=== PATIENT | female | born 1965 | race Hispanic/Latino ===

== ENCOUNTER 2023-05-22 14:35 | Emergency (ER) | payer OTHER ==
--- OUTSIDE RECORDS SUMMARY | 2023-05-22 14:44 | XMS REPORT | Continuity of Care Document ---
:1965 Author Organization [facility] t Address [address] [place] [address] [address] [place] [address] Care Team Providers Name Role Phone Marylou Johnson Primary Care Physician [phone] Problems This patient has no known problems. Allergies, Adverse Reactions, Alerts Allergy Allergy Status Severity Reaction(s) Onset Inactive Treating Comm ents Source Name Type Date Date Clinician Penicill Propensi Active ins ty to 3-01 adverse 00:00: reaction 00 to drug Medications Ordered Filled Start Stop Current Ordering Indication Dosage Frequency Signature Comments Components Source Medication Medication Date Date Medication? Clinician (SIG) Name Name APPLY 2021-06 No SPARINGLY 2-14 TO AFFECTED 00:00: AREA(S) 3 00 TIMES A DAY Dose 2021-06 No Unknown 2-14 00:00: 00 TAKE 1 2021-06 No TABLET 2-02 DAILY. 00:00: 00 Dose 2021-0 No Unknown 9-21 00:00: 00 Dose 2021-0 No Unknown 9-21 00:00: 00 Dose 2021-0 No Unknown 9-21 00:00: 00 Dose 2021-0 No Unknown 9-21 00:00: 00 Dose 2021-0 No Unknown 8-01 00:00: 00 Dose 2021-0 No Unknown 8-01 00:00: 00 Dose 2020- No Unknown 1-15 00:00: 00 Dose 2020- No Unknown 1-15 00:00: 00 Dose 2020- No Unknown 1-15 00:00: 00 Dose 2020- No Unknown 1-15 00:00: 00 Dose 2020- No Unknown 1-15 00:00: 00 Dose 2020- No Unknown 1-15 00:00: 00 gemfibrozil 2020-0 No 1mg 600 mg 6-15 tablet 00:00: 00 metformin 1-0 No 1mg 1,000 mg 6-15 tablet 00:00: 00 levothyroxi 1-0 No 1mcg ne 50 mcg 6-15 tablet 00:00: 00 gemfibrozil 1-0 No 1mg 600 mg 6-15 tablet 00:00: 00 metformin 1-0 No 1mg 1,000 mg 6-15 tablet 00:00: 00 levothyroxi 1-0 No 1mcg ne 50 mcg 6-15 tablet 00:00: 00 Dose 2021-0 No Unknown 3-09 00:00: 00 Dose 1-0 No Unknown 3-09 00:00: 00 loratadine 1-0 No 1mg 10 mg 3-05 tablet 00:00: 00 gemfibrozil 1-0 No 1mg 600 mg 3-05 tablet 00:00: 00 Dose 1-0 No Unknown 3-05 00:00: 00 Dose 1-0 No Unknown 3-05 00:00: 00 metformin 1-0 No 1mg 1,000 mg 3-05 tablet 00:00: 00 Dose 1-0 No Unknown 3-05 00:00: 00 loratadine 1-0 No 1mg 10 mg 3-05 tablet 00:00: 00 gemfibrozil 1-0 No 1mg 600 mg 3-05 tablet 00:00: 00 Dose 1-0 No Unknown 3-05 00:00: 00 Dose 1-0 No Unknown 3-05 00:00: 00 metformin 1-0 No 1mg 1,000 mg 3-05 tablet 00:00: 00 Dose 1-0 No Unknown 3-05 00:00: 00 gemfibrozil 2019-1 No 1mg 600 mg 2-18 tablet 00:00: 00 Dose 2019-1 No Unknown 2-18 00:00: 00 Dose 2019-1 No Unknown 2-18 00:00: 00 Dose 2019-1 No Unknown 2-18 00:00: 00 gemfibrozil 2019-1 No 1mg 600 mg 2-18 tablet 00:00: 00 Dose 2019-1 No Unknown 2-18 00:00: 00 Dose 2019-1 No Unknown 2-18 00:00: 00 Dose 2019-1 No Unknown 2-18 00:00: 00 Dose 2020-0 No Unknown 9-17 00:00: 00 Dose 2020-0 No Unknown 9- 00:00: 00 Dose 2020-0 No Unknown 9 00:00: 00 Dose 2020-0 No Unknown 9-17 00:00: 00 Dose 2020-0 No Unknown 9 00:00: 00 Dose 2020-0 No Unknown 03-05 00:00: 00 metformin 2020-0 No 1mg 1,000 mg 8-10 tablet 00:00: 00 metformin 2020-0 No 1mg 1,000 mg 8-10 tablet 00:00: 00 gemfibrozil 2020-0 No 1mg 600 mg 6-22 tablet 00:00: 00 levothyroxi 2020-0 No 1mcg ne 50 mcg 6-22 tablet 00:00: 00 gemfibrozil 2020-0 No 1mg 600 mg 6-22 tablet 00:00: 00 levothyroxi 2020-0 No 1mcg ne 50 mcg 6-22 tablet 00:00: 00 gemfibrozil 2020-0 No 1mg 600 mg 3-24 tablet 00:00: 00 metformin 2020-0 No 1mg 1,000 mg 3-24 tablet 00:00: 00 levothyroxi 2020-0 No 1mcg ne 50 mcg 3-24 tablet 00:00: 00 gemfibrozil 2020-0 No 1mg 600 mg 3-24 tablet 00:00: 00 metformin 2020-0 No 1mg 1,000 mg 3-24 tablet 00:00: 00 levothyroxi 2020-0 No 1mcg ne 50 mcg 3-24 tablet 00:00: 00 gemfibrozil 2019-1 No 1mg 600 mg 2-20 tablet 00:00: 00 metformin 2019-1 No 1mg 1,000 mg 2-20 tablet 00:00: 00 levothyroxi 2019-1 No 1mcg ne 50 mcg 2-20 tablet 00:00: 00 gemfibrozil 2019-1 No 1mg 600 mg 2-20 tablet 00:00: 00 metformin 2019-1 No 1mg 1,000 mg 2-20 tablet 00:00: 00 levothyroxi 2019-1 No 1mcg ne 50 mcg 2-20 tablet 00:00: 00 metformin 2019-0 No 1mg 1,000 mg 9-29 tablet 00:00: 00 levothyroxi 2019-0 No 1mcg ne 50 mcg 9-29 tablet 00:00: 00 metformin 2019-0 No 1mg 1,000 mg 9-29 tablet 00:00: 00 levothyroxi 2019-0 No 1mcg ne 50 mcg 9-29 tablet 00:00: 00 gemfibrozil 2019-0 No 1mg 600 mg 9-24 tablet 00:00: 00 gemfibrozil 2019-0 No 1mg 600 mg 9-24 tablet 00:00: 00 gemfibrozil 2019-0 No 1mg 600 mg 7-19 tablet 00:00: 00 metformin 2019-0 No 1mg 1,000 mg 7-19 tablet 00:00: 00 levothyroxi 2019-0 No 1mcg ne 50 mcg 7-19 tablet 00:00: 00 gemfibrozil 2019-0 No 1mg 600 mg 7-19 tablet 00:00: 00 metformin 2019-0 No 1mg 1,000 mg 7-19 tablet 00:00: 00 levothyroxi 2019-0 No 1mcg ne 50 mcg 7-19 tablet 00:00: 00 gemfibrozil 2019-0 No 1mg 600 mg 4-12 tablet 00:00: 00 metformin 2019-0 No 1mg 1,000 mg 4-12 tablet 00:00: 00 levothyroxi 2019-0 No 1mcg ne 50 mcg 4-12 tablet 00:00: 00 gemfibrozil 2019-0 No 1mg 600 mg 4-12 tablet 00:00: 00 metformin 2019-0 No 1mg 1,000 mg 4-12 tablet 00:00: 00 levothyroxi 2019-0 No 1mcg ne 50 mcg 4-12 tablet 00:00: 00 levothyroxi 2019-0 No 1mcg ne 50 mcg 4-04 tablet 00:00: 00 levothyroxi 2019-0 No 1mcg ne 50 mcg 4-04 tablet 00:00: 00 Tamiflu 75 2019-0 No 1mg mg capsule 1-04 00:00: 00 Tamiflu 75 2019-0 No 1mg mg capsule 1-04 00:00: 00 gemfibrozil 2018-1 No 1mg 600 mg 2-13 tablet 00:00: 00 metformin 2018-1 No 1mg 1,000 mg 2-13 tablet 00:00: 00 levothyroxi 2018-1 No 1mcg ne 50 mcg 2-13 tablet 00:00: 00 gemfibrozil 2018-1 No 1mg 600 mg 2-13 tablet 00:00: 00 metformin 2018-1 No 1mg 1,000 mg 2-13 tablet 00:00: 00 levothyroxi 2018-1 No 1mcg ne 50 mcg 2-13 tablet 00:00: 00 gemfibrozil 2018-0 No 1mg 600 mg 9-27 tablet 00:00: 00 metformin 2018-0 No 1mg 1,000 mg 9-27 tablet 00:00: 00 levothyroxi 2018-0 No 1mcg ne 50 mcg 9-27 tablet 00:00: 00 gemfibrozil 2018-0 No 1mg 600 mg 9-27 tablet 00:00: 00 metformin 2018-0 No 1mg 1,000 mg 9-27 tablet 00:00: 00 levothyroxi 2018-0 No 1mcg ne 50 mcg 9-27 tablet 00:00: 00 gemfibrozil 2018-0 No 1mg 600 mg 8-27 tablet 00:00: 00 metformin 2018-0 No 1mg 1,000 mg 8-27 tablet 00:00: 00 levothyroxi 2018-0 No 1mcg ne 50 mcg 8-27 tablet 00:00: 00 gemfibrozil 2018-0 No 1mg 600 mg 8-27 tablet 00:00: 00 metformin 2018-0 No 1mg 1,000 mg 8-27 tablet 00:00: 00 levothyroxi 2018-0 No 1mcg ne 50 mcg 8-27 tablet 00:00: 00 levothyroxi 2018-0 No 1mcg ne 50 mcg 7-02 tablet 00:00: 00 levothyroxi 2018-0 No 1mcg ne 50 mcg 7-02 tablet 00:00: 00 gemfibrozil 2018-0 No 1mg 600 mg 5-03 tablet 00:00: 00 metformin 2018-0 No 1mg 1,000 mg 5-03 tablet 00:00: 00 levothyroxi 2018-0 No 1mcg ne 50 mcg 5-03 tablet 00:00: 00 levothyroxi 2018-0 No 1mcg ne 50 mcg 5-03 tablet 00:00: 00 gemfibrozil 2018-0 No 1mg 600 mg 5-03 tablet 00:00: 00 metformin 2018-0 No 1mg 1,000 mg 5-03 tablet 00:00: 00 levothyroxi 2018-0 No 1mcg ne 50 mcg 5-03 tablet 00:00: 00 levothyroxi 2018-0 No 1mcg ne 50 mcg 5-03 tablet 00:00: 00 levothyroxi 2018-0 No 1mcg ne 50 mcg 2-20 tablet 00:00: 00 levothyroxi 2018-0 No 1mcg ne 50 mcg 2-20 tablet 00:00: 00 metformin 2018-0 No 1mg 1,000 mg 2-01 tablet 00:00: 00 metformin 2018-0 No 1mg 1,000 mg 2-01 tablet 00:00: 00 metformin 2017-0 No 1mg 1,000 mg 8-14 tablet 00:00: 00 levothyroxi 2017-0 No 1mcg ne 50 mcg 8-14 tablet 00:00: 00 gemfibrozil 2017-0 No 1mg 600 mg 8-14 tablet 00:00: 00 metformin 2017-0 No 1mg 1,000 mg 8-14 tablet 00:00: 00 levothyroxi 2017-0 No 1mcg ne 50 mcg 8-14 tablet 00:00: 00 gemfibrozil 2017-0 No 1mg 600 mg 8-14 tablet 00:00: 00 levothyroxi 2017-0 No 1mcg ne 50 mcg 7-25 tablet 00:00: 00 levothyroxi 2017-0 No 1mcg ne 50 mcg 7-25 tablet 00:00: 00 gemfibrozil 2017-0 No 1mg 600 mg 6-20 tablet 00:00: 00 gemfibrozil 2017-0 No 1mg 600 mg 6-20 tablet 00:00: 00 metformin 2017-0 No 1mg 1,000 mg 5-27 tablet 00:00: 00 metformin 2017-0 No 1mg 1,000 mg 5-27 tablet 00:00: 00 gemfibrozil 2017-0 No 1mg 600 mg 5-02 tablet 00:00: 00 gemfibrozil 2017-0 No 1mg 600 mg 5-02 tablet 00:00: 00 levothyroxi 2017-0 No 1mcg ne 50 mcg 3-29 tablet 00:00: 00 levothyroxi 2017-0 No 1mcg ne 50 mcg 3-29 tablet 00:00: 00 Vital Signs Vital Name Observation Time Observation Value Comments Source BP Systolic 2022-06-02 16:07:00 117 mm[Hg] BP Diastolic 2022-06-02 16:07:00 72 mm[Hg] Weight Measured 2022-06-02 16:07:00 145.60 pounds Height Measured 2022-06-02 16:07:00 63.50 inches Body Temperature 2022-06-02 16:07:00 98.20 degrees Heart Rate 2022-06-02 16:07:00 92.00 /min Respiratory Rate 2022-06-02 16:07:00 18.00 /min BP Systolic 2022-03-18 16:38:00 110 mm[Hg] BP Diastolic 2022-03-18 16:38:00 74 mm[Hg] Weight Measured 2022-03-18 16:38:00 143.20 pounds Height Measured 2022-03-18 16:38:00 63.50 inches Body Temperature 2022-03-18 16:38:00 98.40 degrees Heart Rate 2022-03-18 16:38:00 80.00 /min Respiratory Rate 2022-03-18 16:38:00 BP Systolic 2021-11-26 10:43:00 110 mm[Hg] BP Diastolic 2021-11-26 10:43:00 71 mm[Hg] Weight Measured 2021-11-26 10:43:00 146.80 pounds Height Measured 2021-11-26 10:43:00 63.50 inches Body Temperature 2021-11-26 10:43:00 98.20 degrees Heart Rate 2021-11-26 10:43:00 74.00 /min Respiratory Rate 2021-11-26 10:43:00 BP Systolic 2021-08-10 08:25:00 111 mm[Hg] BP Diastolic 2021-08-10 08:25:00 74 mm[Hg] Weight Measured 2021-08-10 08:25:00 147.60 pounds Height Measured 2021-08-10 08:25:00 63.50 inches Body Temperature 2021-08-10 08:25:00 97.40 degrees Heart Rate 2021-08-10 08:25:00 84.00 /min Respiratory Rate 2021-08-10 08:25:00 BP Systolic 2021-05-07 08:48:00 104 mm[Hg] BP Diastolic 2021-05-07 08:48:00 66 mm[Hg] Weight Measured 2021-05-07 08:48:00 150.00 pounds Height Measured 2021-05-07 08:48:00 63.50 inches Body Temperature 2021-05-07 08:48:00 96.70 degrees Heart Rate 2021-05-07 08:48:00 67.00 /min Respiratory Rate 2021-05-07 08:48:00 BP Systolic 2021-05-03 16:22:00 107 mm[Hg] BP Diastolic 2021-05-03 16:22:00 71 mm[Hg] Weight Measured 2021-05-03 16:22:00 150.00 pounds Height Measured 2021-05-03 16:22:00 63.50 inches Body Temperature 2021-05-03 16:22:00 97.20 degrees Heart Rate 2021-05-03 16:22:00 86.00 /min Respiratory Rate 2021-05-03 16:22:00 BP Systolic 2020-08-21 09:54:00 120 mm[Hg] BP Diastolic 2020-08-21 09:54:00 79 mm[Hg] Weight Measured 2020-08-21 09:54:00 152.20 pounds Height Measured 2020-08-21 09:54:00 63.50 inches Body Temperature 2020-08-21 09:54:00 98.30 degrees Heart Rate 2020-08-21 09:54:00 96.00 /min Respiratory Rate 2020-08-21 09:54:00 17.00 /min BP Systolic 2020-06-05 10:45:00 114 mm[Hg] BP Diastolic 2020-06-05 10:45:00 85 mm[Hg] Weight Measured 2020-06-05 10:45:00 146.00 pounds Height Measured 2020-06-05 10:45:00 63.50 inches Body Temperature 2020-06-05 10:45:00 97.80 degrees Heart Rate 2020-06-05 10:45:00 105.00 /min Respiratory Rate 2020-06-05 10:45:00 BP Systolic 2020-03-05 08:06:00 113 mm[Hg] BP Diastolic 2020-03-05 08:06:00 76 mm[Hg] Weight Measured 2020-03-05 08:06:00 152.80 pounds Height Measured 2020-03-05 08:06:00 63.50 inches Body Temperature 2020-03-05 08:06:00 98.50 degrees Heart Rate 2020-03-05 08:06:00 85.00 /min Respiratory Rate 2020-03-05 08:06:00 17.00 /min BP Systolic 2019-12-09 10:19:00 122 mm[Hg] BP Diastolic 2019-12-09 10:19:00 72 mm[Hg] Weight Measured 2019-12-09 10:19:00 153.40 pounds Height Measured 2019-12-09 10:19:00 63.50 inches Body Temperature 2019-12-09 10:19:00 98.00 degrees Heart Rate 2019-12-09 10:19:00 94.00 /min Respiratory Rate 2019-12-09 10:19:00 17.00 /min BP Systolic 2019-09-05 10:45:00 119 mm[Hg] BP Diastolic 2019-09-05 10:45:00 76 mm[Hg] Weight Measured 2019-09-05 10:45:00 155.40 pounds Height Measured 2019-09-05 10:45:00 63.50 inches Body Temperature 2019-09-05 10:45:00 98.30 degrees Heart Rate 2019-09-05 10:45:00 90.00 /min Respiratory Rate 2019-09-05 10:45:00 Procedures This patient has no known procedures. Plan of Care Planned Activity Planned Date Details Comments Source Goal Plan of Care Note [code = 22224-6] Goal Plan of Care Note [code = 73859-4] Goal Plan of Care Note [code = 04035-2] Goal Plan of Care Note [code = 80186-8] Goal Plan of Care Note [code = 93170-3] Goal Plan of Care Note [code = 73097-6] Goal Plan of Care Note [code = 37776-5] Goal Plan of Care Note [code = 37373-4] Goal Plan of Care Note [code = 04907-9] Goal Plan of Care Note [code = 29938-0] Goal Plan of Care Note [code = 37219-5] Goal Plan of Care Note [code = 06367-9] Goal Plan of Care Note [code = 19889-8] Goal Plan of Care Note [code = 40581-8] Goal Plan of Care Note [code = 96342-3] Goal Plan of Care Note [code = 80458-0] Goal Plan of Care Note [code = 27866-1] Goal Plan of Care Note [code = 85235-9] Goal Plan of Care Note [code = 28277-5] Goal Plan of Care Note [code = 35320-0] Goal Plan of Care Note [code = 82882-9] Goal Plan of Care Note [code = 48013-6] Goal Plan of Care Note [code = 53460-0] Goal Plan of Care Note [code = 50345-7] Goal Plan of Care Note [code = 00528-2] Goal Plan of Care Note [code = 78579-3] Goal Plan of Care Note [code = 55927-2] Goal Plan of Care Note [code = 20413-0] Goal Plan of Care Note [code = 05099-7] Goal Plan of Care Note [code = 60877-8] Goal Plan of Care Note [code = 60017-3] Goal Plan of Care Note [code = 68421-4] Goal Plan of Care Note [code = 52062-4] Goal Plan of Care Note [code = 29117-6] Goal Plan of Care Note [code = 43345-6] Goal Plan of Care Note [code = 53412-8] Goal Plan of Care Note [code = 12203-8] Goal Plan of Care Note [code = 23294-1] Encounters Start End Encounter Admission Attending Care Care Encounter Source Date/Time Date/Time Type Type Clinicians Facility Department ID 2023-04-07 2023-04-07 Outpatient SFA SFA [id number] [place] 11:44:32 11:44:32 1020 [facility] 2022-12-21 2022-12-21 Outpatient SFA SFA [id number] [place] 08:12:21 08:12:21 0705 [facility] 2022-12-16 2022-12-16 Outpatient SFA SFA [id number] Jairo 16:43:47 16:43:47 0630 F [facility] 2022-09-15 2022-09-15 Outpatient SFA SFA [id number] [place] 09:31:37 09:31:37 0330 [facility] 2022-06-08 2022-06-08 Outpatient SFA SFA [id number] [place] 08:08:35 08:08:35 1221 [facility] [place] 2022-06-02 2022-06-02 Outpatient SFA SFA [id number] J[place] 15:58:23 15:58:23 1215 [facility] [place] 2022-06-02 2022-06-02 Outpatient [id number] 00:00:00 00:00:00 Visit [id number] 2022-03-25 2022-03-25 Outpatient SFA SFA [id number] 022 [place] 10:04:45 10:04:45 1007 [facility] [place] 2022-03-18 2022-03-18 Outpatient SFA SFA [id number] 022 [place] 16:38:12 16:38:12 0930 [facility] [place] 2022-03-18 2022-03-18 Outpatient [id number] 00:00:00 00:00:00 Visit [id number] Results Test Description Test Time Test Comments Results Result Comments Source TSH, THIRD GENERATION 2022-06-09 05:23:42 Test Item Value Reference Range Interpretation Comme nts TSH, THIRD GENERATION (test 1.720 UIU/ML 0.400-4.100 UNLESS OTHERWISE INDICATED, code = 2821) ALL TESTING PER FORMED ATCLINICAL PATH OLOGY LABORATORIES, [facility]. [address] [place] [address] 9636 WELL SURVEYING ENGINEER: Benton OSEI [id number] [facility] [place]. [id number] HEMOGLOBIN [id number] 03:50:34 Test Item Value Reference Range Interpretation Comments HEMOGLOBIN A1c (test 7.8 % 4.2-5.6 H [employer] AN DIABETES code = 16251) ASSOCIATION IDELINES FOR HGB A1C: PREDIABETES/INC REASED RISK . . . . . . . 5.7 -6.4% DIAGNOSIS OF DI ABETES . . . . . . . . . >=6 .5% WITH CONFIRMATION OR APPROPRIATE SYMPTOMS NOTE: ASSAY MAY BE AFFECTED BY HEMOGLOBINOPATH IES (SICKLE CELL ANEMIA, S- C DISEASE, OTHERS) OR AL FICIALLY LOWERED BY DECR EASED RED CELL SURVIVAL ( HEMOLYTIC ANEMIAS, BLOOD LOSS, ETC.). CONSIDER ALTERN ATE TESTING OR LABORATORY C ONSULTATION. LIPID [id number] 03:03:48 Test Item Value Reference Range Interpretation Comments CHOLESTEROL (test 221 MG/DL <200 H code = 2210) TRIGLYCERIDES (test 134 MG/DL <150 code = 2232) HDL CHOLESTEROL (test 56 MG/DL >39 code = 2220) CALC LDL CHOL (test 139 MG/DL <100 H NOTE: C ALCULATED LDL code = 2237) IS BASED ON STONE-ROSARIO METHOD WHICHINCLUDES ADJUSTABLE TRIGLYCERIDE:VL DL CHOLESTEROL RAT IO.THIS FACTOR VARIES B Y MEASURED TRIGLY CERIDE AND NON-HDLCHOL ESTEROL CONCENTRATIONS WITH INCREASED CALCU LATED LDL SEENIN HIGH ER TRIGLYCERIDE OR LOWER NON-HDL SPECIME NS. FOR MOREINFORMATION , SEE CLIENT ANNOUNCE MENT AT [email or web address] [email or web address] RATIO LDL/HDL 2.48 RATIO <3.22 (test code = 2238) COMPREHENSIVE METABOLIC [id number] 03:03:48 Test Item Value Reference Range Interpretation Comments GLUCOSE (test code = 149 MG/DL 70-99 H 2216) BUN (test code = 13 MG/DL 6-20 2207) CREATININE (test 0.56 MG/DL 0.60-1.30 L code = 2214) eGFR (2020 CKD-EPI) 106 >60 (test code = 57902) ML/MIN/1.73 CALC BUN/CREAT (test 23 RATIO 6-28 code = 2235) SODIUM (test code = 140 MEQ/L [phone]) POTASSIUM (test code 4.6 MEQ/L 3.5-5.4 = 2227) CHLORIDE (test code 103 MEQ/L 95-107 = 2214) CARBON DIOXIDE (test 26 MEQ/L 19-31 code = 220) CALCIUM (test code = 9.8 MG/DL 8.5-10.5 2208) PROTEIN, TOTAL (test 7.3 G/DL 6.1-8.3 code = 2229) ALBUMIN (test code = 4.7 G/DL 3.5-5.2 2200) CALC GLOBULIN (test 2.6 G/DL 1.9-3.7 code = 2240) CALC A/G RATIO (test 1.8 RATIO 1.0-2.6 code = 2234) BILIRUBIN, TOTAL <0.2 MG/DL See_Comment [Automated message] (test code = 2207) The syste m which generated this result transmit amaury reference range : <=1.2. The refe rence range was not u sed to interpret th is result as normal/abnormal . ALKALINE PHOSPHATASE 110 U/L 40-136 (test code = 2204) AST (test code = 14 U/L 9-40 2217) ALT (test code = 10 U/L 5-40 2218) TSH + FREE T4 [id number] 06:51:21 Test Item Value Reference Range Interpretation Comments TSH, THIRD 1.480 UIU/ML 0.400-4.100 GENERATION (test code = 2821) FREE T4 (THYROXINE) 1.30 NG/DL 0.80-1.90 UNLESS OTHERWISE (test code = 2823) INDICATED , ALL TESTING PERFORMED [facility] PATHOLOGY LABORATORIES, [facility] [address] [place] [id number] [place] [address] DIRECTOR: JED PRADHAN M.D. IA NUMBER [id number] CAP ACCREDITATION N O. [id number] LIPID [id number] 06:19:30 Test Item Value Reference Range Interpretation Comments CHOLESTEROL (test 219 MG/DL <200 H code = 2210) TRIGLYCERIDES (test 82 MG/DL <150 code = 2232) HDL CHOLESTEROL (test 68 MG/DL >39 code = 2220) CALC LDL CHOL (test 133 MG/DL <100 H NOTE: C ALCULATED LDL code = 2237) IS BASED ON STONE-ROSARIO METHOD WHICHINCLUDES ADJUSTABLE TRIGLYCERIDE:VL DL CHOLESTEROL RAT IO.THIS FACTOR VARIES B Y MEASURED TRIGLY CERIDE AND NON-HDLCHOL ESTEROL CONCENTRATIONS WITH INCREASED CALCU LATED LDL SEENIN HIGH ER TRIGLYCERIDE OR LOWER NON-HDL SPECIME NS. FOR MOREINFORMATION , SEE CLIENT ANNOUNCE MENT AT [email or web address] RISK RATIO LDL/HDL 1.96 RATIO <3.22 (test code = 2238) COMPREHENSIVE METABOLIC [id number] 06:19:30 Test Item Value Reference Range Interpretation Comments GLUCOSE (test code = 115 MG/DL 70-99 H 2216) BUN (test code = 12 MG/DL 6-20 2207) CREATININE (test 0.58 MG/DL 0.60-1.30 L code = 2214) eGFR (2020 CKD-EPI) 105 >60 (test code = 86517) ML/MIN/1.73 CALC BUN/CREAT (test 21 RATIO 6-28 code = 2235) SODIUM (test code = 141 MEQ/L 450-158 6966) POTASSIUM (test code 4.5 MEQ/L 3.5-5.4 = 2227) CHLORIDE (test code 105 MEQ/L 95-107 = 2214) CARBON DIOXIDE (test 26 MEQ/L 19-31 code = 220) CALCIUM (test code = 9.8 MG/DL 8.5-10.5 2208) PROTEIN, TOTAL (test 7.0 G/DL 6.1-8.3 code = 2228) ALBUMIN (test code = 4.5 G/DL 3.5-5.2 2200) CALC GLOBULIN (test 2.5 G/DL 1.9-3.7 code = 224) CALC A/G RATIO (test 1.8 RATIO 1.0-2.6 code = 223) BILIRUBIN, TOTAL 0.2 MG/DL See_Comment [Automated message] (test code = 220) The syste m which generated this result transmit amaury reference range : <=1.2. The refe rence range was not u sed to interpret th is result as normal/abnormal . ALKALINE PHOSPHATASE 92 U/L 40-136 (test code = 2204) AST (test code = 15 U/L 9-40 2217) ALT (test code = 9 U/L 5-40 2218) HEMOGLOBIN [id number] 03:06:00 Test Item Value Reference Range Interpretation Comments HEMOGLOBIN A1c (test 7.3 % 4.2-5.6 H [employer] DIABETES code = 99821) ASSOCIATION IDELINES FOR HGB A1C: PREDIABETES/INC REASED RISK . . . . . . . 5.7 -6.4% DIAGNOSIS OF DI ABETES . . . . . . . . . >=6 .5% WITH CONFIRMATION OR APPROPRIATE SYMPTOMS NOTE: ASSAY MAY BE AFFECTED BY HEMOGLOBINOPATH IES (SICKLE CELL ANEMIA, S- C DISEASE, OTHERS) OR AL FICIALLY LOWERED BY DECR EASED RED CELL SURVIVAL ( HEMOLYTIC ANEMIAS, BLOOD LOSS, ETC.). CONSIDER ALTERN ATE TESTING OR LABORATORY C ONSULTATION. HEMOGLOBIN A1c [ADDED]2022-03-26 00:00:00 Test Item Value Reference Range Interpretation Comments HEMOGLOBIN A1c (test code = 55492) 7.3 % HEMOGLOBIN A1c [ADDED]2022-03-26 00:00:00 Test Item Value Reference Range Interpretation Comments HEMOGLOBIN A1c (test code = 15879) 7.3 % HEMOGLOBIN A1c [ADDED]2022-03-26 00:00:00 Test Item Value Reference Range Interpretation Comments HEMOGLOBIN A1c (test code = 48415) 7.3 % LIPID PANEL [ADDED]2022-03-26 00:00:00 Test Item Value Reference Range Interpretation Comments CHOLESTEROL (test code = 2210) 219 MG/DL TRIGLYCERIDES (test code = 2232) 82 MG/DL HDL CHOLESTEROL (test code = 2220) 68 MG/DL CALC LDL CHOL (test code = 2237) 133 MG/DL RISK RATIO LDL/HDL (test code = 1.96 RATIO 2238) LIPID PANEL [ADDED]2022-03-26 00:00:00 Test Item Value Reference Range Interpretation Comments CHOLESTEROL (test code = 2210) 219 MG/DL TRIGLYCERIDES (test code = 2232) 82 MG/DL HDL CHOLESTEROL (test code = 2220) 68 MG/DL CALC LDL CHOL (test code = 2237) 133 MG/DL RISK RATIO LDL/HDL (test code = 1.96 RATIO 2238) COMPREHENSIVE METABOLIC PANEL [ADDED]2022-03-26 00:00:00 Test Item Value Reference Range Interpretation Comments GLUCOSE (test code = 2217) 115 MG/DL BUN (test code = 2208) 12 MG/DL CREATININE (test code = 2214) 0.58 MG/DL eGFR (2020 CKD-EPI) (test 105 ML/MIN/1.73 code = 87997) CALC BUN/CREAT (test code = 21 RATIO 2235) SODIUM (test code = 2231) 141 MEQ/L POTASSIUM (test code = 2228) 4.5 MEQ/L CHLORIDE (test code = 2215) 105 MEQ/L CARBON DIOXIDE (test code = 26 MEQ/L 220) CALCIUM (test code = 2209) 9.8 MG/DL PROTEIN, TOTAL (test code = 7.0 G/DL 222) ALBUMIN (test code = 2201) 4.5 G/DL CALC GLOBULIN (test code = 2.5 G/DL 2240) CALC A/G RATIO (test code = 1.8 RATIO 2234) BILIRUBIN, TOTAL (test code = 0.2 MG/DL 2206) ALKALINE PHOSPHATASE (test 92 U/L code = 2204) AST (test code = 2218) 15 U/L ALT (test code = 2219) 9 U/L COMPREHENSIVE METABOLIC PANEL [ADDED]2022-03-26 00:00:00 Test Item Value Reference Range Interpretation Comments GLUCOSE (test code = 2217) 115 MG/DL BUN (test code = 2208) 12 MG/DL CREATININE (test code = 2214) 0.58 MG/DL eGFR (2020 CKD-EPI) (test 105 ML/MIN/1.73 code = 36124) CALC BUN/CREAT (test code = 21 RATIO 2235) SODIUM (test code = 2231) 141 MEQ/L POTASSIUM (test code = 2228) 4.5 MEQ/L CHLORIDE (test code = 2215) 105 MEQ/L CARBON DIOXIDE (test code = 26 MEQ/L 2205) CALCIUM (test code = 2209) 9.8 MG/DL PROTEIN, TOTAL (test code = 7.0 G/DL 2228) ALBUMIN (test code = 2201) 4.5 G/DL CALC GLOBULIN (test code = 2.5 G/DL 2240) CALC A/G RATIO (test code = 1.8 RATIO 2234) BILIRUBIN, TOTAL (test code = 0.2 MG/DL 2206) ALKALINE PHOSPHATASE (test 92 U/L code = 2204) AST (test code = 2218) 15 U/L ALT (test code = 2219) 9 U/L TSH + FREE T4 PROFILE [ADDED]2022-03-26 00:00:00 Test Item Value Reference Range Interpretation Comments TSH, THIRD GENERATION (test code 1.480 UIU/ML = 2821) FREE T4 (THYROXINE) (test code = 1.30 NG/DL 2823) TSH + FREE T4 PROFILE [ADDED]2022-03-26 00:00:00 Test Item Value Reference Range Interpretation Comments TSH, THIRD GENERATION (test code 1.480 UIU/ML = 2821) FREE T4 (THYROXINE) (test code = 1.30 NG/DL 2823) TSH + FREE T4 PROFILE [ADDED]2022-03-26 00:00:00 Test Item Value Reference Range Interpretation Comments TSH, THIRD GENERATION (test code 1.480 UIU/ML = 2821) FREE T4 (THYROXINE) (test code = 1.30 NG/DL 2823) TSH + FREE T4 [id number] 05:42:42 Test Item Value Reference Range Interpretation Comments TSH, THIRD 1.030 UIU/ML 0.400-4.100 GENERATION (test code = 2821) FREE T4 (THYROXINE) 1.37 NG/DL 0.80-1.90 UNLESS OTHERWISE (test code = 2823) INDICATED , ALL TESTING PERFORMED [facility], [facility] [address] [place] [id number] [place] [address] DIRECTOR: JED PRADHAN M.D. CLIA NUMBER [id number] CAP ACCREDITATION N O. [id number] LIPID [id number] 05:22:58 Test Item Value Reference Range Interpretation Comments CHOLESTEROL (test 218 MG/DL <200 H code = 2210) TRIGLYCERIDES (test 112 MG/DL <150 code = 2232) HDL CHOLESTEROL (test 64 MG/DL >39 code = 2220) CALC LDL CHOL (test 132 MG/DL <100 H NOTE: C ALCULATED LDL code = 2237) IS BASED ON STONE-ROSARIO METHOD WHICHINCLUDES ADJUSTABLE TRIGLYCERIDE:VL DL CHOLESTEROL RAT IO.THIS FACTOR VARIES B Y MEASURED TRIGLY CERIDE AND NON-HDLCHOL ESTEROL CONCENTRATIONS WITH INCREASED CALCU LATED LDL SEENIN HIGH ER TRIGLYCERIDE OR LOWER NON-HDL SPECIME NS. FOR MOREINFORMATION , SEE CLIENT ANNOUNCE MENT AT [email or web address] [email or web address] LDL/HDL 2.06 RATIO <3.22 (test code = 2238) COMPREHENSIVE METABOLIC [id number] 05:22:58 Test Item Value Reference Range Interpretation Comments GLUCOSE (test code = 107 MG/DL 70-99 H 2216) BUN (test code = 13 MG/DL 6-20 2207) CREATININE (test 0.57 MG/DL 0.60-1.30 L code = 2214) eGFR (2020 CKD-EPI) 105 >60 (test code = 41570) ML/MIN/1.73 CALC BUN/CREAT (test 23 RATIO 6-28 code = 2234) SODIUM (test code = 140 MEQ/L 707-038 1683) POTASSIUM (test code 4.1 MEQ/L 3.5-5.4 = 2227) CHLORIDE (test code 104 MEQ/L 95-107 = 2214) CARBON DIOXIDE (test 26 MEQ/L 19-31 code = 2205) CALCIUM (test code = 9.8 MG/DL 8.5-10.5 2208) PROTEIN, TOTAL (test 7.0 G/DL 6.1-8.3 code = 2228) ALBUMIN (test code = 4.6 G/DL 3.5-5.2 2200) CALC GLOBULIN (test 2.4 G/DL 1.9-3.7 code = 2239) CALC A/G RATIO (test 1.9 RATIO 1.0-2.6 code = 2233) BILIRUBIN, TOTAL 0.2 MG/DL See_Comment [Automated message] (test code = 2206) The syste [employer] which generated this result transmit amaury reference range : <=1.2. The refe rence range was not u sed to interpret th is result as normal/abnormal . ALKALINE PHOSPHATASE 96 U/L 40-136 (test code = 2203) AST (test code = 15 U/L 9-40 2217) ALT (test code = 13 U/L 5-40 2218) HEMOGLOBIN [id number] 05:20:46 Test Item Value Reference Range Interpretation Comments HEMOGLOBIN A1c (test 7.5 % 4.2-5.6 H AMERIC AN DIABETES code = 82917) ASSOCIATION IDELINES FOR HGB A1C: PREDIABETES/INC REASED RISK . . . . . . . 5.7 -6.4% DIAGNOSIS OF DI ABETES . . . . . . . . . >=6 .5% WITH CONFIRMATION OR APPROPRIATE SYMPTOMS NOTE: ASSAY MAY BE AFFECTED BY HEMOGLOBINOPATH IES (SICKLE CELL ANEMIA, S- C DISEASE, OTHERS) OR AL FICIALLY LOWERED BY DECR EASED RED CELL SURVIVAL ( HEMOLYTIC ANEMIAS, BLOOD LOSS, ETC.). CONSIDER ALTERN ATE TESTING OR LABORATORY C ONSULTATION. LIPID PANEL [ADDED]2021-11-27 00:00:00 Test Item Value Reference Range Interpretation Comments CHOLESTEROL (test code = 2210) 218 MG/DL TRIGLYCERIDES (test code = 2232) 112 MG/DL HDL CHOLESTEROL (test code = 2220) 64 MG/DL CALC LDL CHOL (test code = 2237) 132 MG/DL RISK RATIO LDL/HDL (test code = 2.06 RATIO 2238) LIPID PANEL [ADDED]2021-11-27 00:00:00 Test Item Value Reference Range Interpretation Comments CHOLESTEROL (test code = 2210) 218 MG/DL TRIGLYCERIDES (test code = 2232) 112 MG/DL HDL CHOLESTEROL (test code = 2220) 64 MG/DL CALC LDL CHOL (test code = 2237) 132 MG/DL RISK RATIO LDL/HDL (test code = 2.06 RATIO 2238) COMPREHENSIVE METABOLIC PANEL [ADDED]2021-11-27 00:00:00 Test Item Value Reference Range Interpretation Comments GLUCOSE (test code = 2217) 107 MG/DL BUN (test code = 2208) 13 MG/DL CREATININE (test code = 2214) 0.57 MG/DL eGFR (2020 CKD-EPI) (test 105 ML/MIN/1.73 code = 35059) CALC BUN/CREAT (test code = 23 RATIO 2235) SODIUM (test code = 2231) 140 MEQ/L POTASSIUM (test code = 2228) 4.1 MEQ/L CHLORIDE (test code = 2215) 104 MEQ/L CARBON DIOXIDE (test code = 26 MEQ/L 2205) CALCIUM (test code = 2209) 9.8 MG/DL PROTEIN, TOTAL (test code = 7.0 G/DL 2228) ALBUMIN (test code = 2201) 4.6 G/DL CALC GLOBULIN (test code = 2.4 G/DL 2240) CALC A/G RATIO (test code = 1.9 RATIO 2234) BILIRUBIN, TOTAL (test code = 0.2 MG/DL 2206) ALKALINE PHOSPHATASE (test 96 U/L code = 2204) AST (test code = 2218) 15 U/L ALT (test code = 2219) 13 U/L COMPREHENSIVE METABOLIC PANEL [ADDED]2021-11-27 00:00:00 Test Item Value Reference Range Interpretation Comments GLUCOSE (test code = 2217) 107 MG/DL BUN (test code = 2208) 13 MG/DL CREATININE (test code = 2214) 0.57 MG/DL eGFR (2020 CKD-EPI) (test 105 ML/MIN/1.73 code = 71466) CALC BUN/CREAT (test code = 23 RATIO 2234) SODIUM (test code = 2231) 140 MEQ/L POTASSIUM (test code = 2228) 4.1 MEQ/L CHLORIDE (test code = 2215) 104 MEQ/L CARBON DIOXIDE (test code = 26 MEQ/L 2205) CALCIUM (test code = 220) 9.8 MG/DL PROTEIN, TOTAL (test code = 7.0 G/DL 2228) ALBUMIN (test code = 220) 4.6 G/DL CALC GLOBULIN (test code = 2.4 G/DL 2239) CALC A/G RATIO (test code = 1.9 RATIO 2233) BILIRUBIN, TOTAL (test code = 0.2 MG/DL 2206) ALKALINE PHOSPHATASE (test 96 U/L code = 220) AST (test code = 2218) 15 U/L ALT (test code = 2219) 13 U/L TSH + FREE T4 PROFILE [ADDED]2021-11-27 00:00:00 Test Item Value Reference Range Interpretation Comments TSH, THIRD GENERATION (test code 1.030 UIU/ML = 2821) FREE T4 (THYROXINE) (test code = 1.37 NG/DL 2823) TSH + FREE T4 PROFILE [ADDED]2021-11-27 00:00:00 Test Item Value Reference Range Interpretation Comments TSH, THIRD GENERATION (test code 1.030 UIU/ML = 2821) FREE T4 (THYROXINE) (test code = 1.37 NG/DL 2823) TSH + FREE T4 PROFILE [ADDED]2021-11-27 00:00:00 Test Item Value Reference Range Interpretation Comments TSH, THIRD GENERATION (test code 1.030 UIU/ML = 2821) FREE T4 (THYROXINE) (test code = 1.37 NG/DL 2823) HEMOGLOBIN A1c [ADDED]2021-11-27 00:00:00 Test Item Value Reference Range Interpretation Comments HEMOGLOBIN A1c (test code = 09647) 7.5 % HEMOGLOBIN A1c [ADDED]2021-11-27 00:00:00 Test Item Value Reference Range Interpretation Comments HEMOGLOBIN A1c (test code = 46603) 7.5 % HEMOGLOBIN A1c [ADDED]2021-11-27 00:00:00 Test Item Value Reference Range Interpretation Comments HEMOGLOBIN A1c (test code = 86981) 7.5 % LIPID PANEL [ADDED]2021-11-27 00:00:00 Test Item Value Reference Range Interpretation Comments CHOLESTEROL (test code = 2210) 218 MG/DL TRIGLYCERIDES (test code = 2232) 112 MG/DL HDL CHOLESTEROL (test code = 2220) 64 MG/DL CALC LDL CHOL (test code = 2237) 132 MG/DL RISK RATIO LDL/HDL (test code = 2.06 RATIO 2238) LIPID PANEL [ADDED]2021-11-27 00:00:00 Test Item Value Reference Range Interpretation Comments CHOLESTEROL (test code = 2210) 218 MG/DL TRIGLYCERIDES (test code = 2232) 112 MG/DL HDL CHOLESTEROL (test code = 2220) 64 MG/DL CALC LDL CHOL (test code = 2237) 132 MG/DL RISK RATIO LDL/HDL (test code = 2.06 RATIO 2238) COMPREHENSIVE METABOLIC PANEL [ADDED]2021-11-27 00:00:00 Test Item Value Reference Range Interpretation Comments GLUCOSE (test code = 2217) 107 MG/DL BUN (test code = 2208) 13 MG/DL CREATININE (test code = 2214) 0.57 MG/DL eGFR (2020 CKD-EPI) (test 105 ML/MIN/1.73 code = 77727) CALC BUN/CREAT (test code = 23 RATIO 2235) SODIUM (test code = 2231) 140 MEQ/L POTASSIUM (test code = 2228) 4.1 MEQ/L CHLORIDE (test code = 2215) 104 MEQ/L CARBON DIOXIDE (test code = 26 MEQ/L 2205) CALCIUM (test code = 2209) 9.8 MG/DL PROTEIN, TOTAL (test code = 7.0 G/DL 2228) ALBUMIN (test code = 2201) 4.6 G/DL CALC GLOBULIN (test code = 2.4 G/DL 2239) CALC A/G RATIO (test code = 1.9 RATIO 223) BILIRUBIN, TOTAL (test code = 0.2 MG/DL 2206) ALKALINE PHOSPHATASE (test 96 U/L code = 2204) AST (test code = 2218) 15 U/L ALT (test code = 2219) 13 U/L COMPREHENSIVE METABOLIC PANEL [ADDED]2021-11-27 00:00:00 Test Item Value Reference Range Interpretation Comments GLUCOSE (test code = 2217) 107 MG/DL BUN (test code = 2208) 13 MG/DL CREATININE (test code = 2214) 0.57 MG/DL eGFR (2020 CKD-EPI) (test 105 ML/MIN/1.73 code = 92420) CALC BUN/CREAT (test code = 23 RATIO 5) SODIUM (test code = 2231) 140 MEQ/L POTASSIUM (test code = 2228) 4.1 MEQ/L CHLORIDE (test code = 2215) 104 MEQ/L CARBON DIOXIDE (test code = 26 MEQ/L 2205) CALCIUM (test code = 220) 9.8 MG/DL PROTEIN, TOTAL (test code = 7.0 G/DL 2228) ALBUMIN (test code = 220) 4.6 G/DL CALC GLOBULIN (test code = 2.4 G/DL 2239) CALC A/G RATIO (test code = 1.9 RATIO 2233) BILIRUBIN, TOTAL (test code = 0.2 MG/DL 2206) ALKALINE PHOSPHATASE (test 96 U/L code = 220) AST (test code = 2218) 15 U/L ALT (test code = 2219) 13 U/L TSH + FREE T4 PROFILE [ADDED]2021-11-27 00:00:00 Test Item Value Reference Range Interpretation Comments TSH, THIRD GENERATION (test code 1.030 UIU/ML = 2821) FREE T4 (THYROXINE) (test code = 1.37 NG/DL 2823) TSH + FREE T4 PROFILE [ADDED]2021-11-27 00:00:00 Test Item Value Reference Range Interpretation Comments TSH, THIRD GENERATION (test code 1.030 UIU/ML = 2821) FREE T4 (THYROXINE) (test code = 1.37 NG/DL 2823) TSH + FREE T4 PROFILE [ADDED]2021-11-27 00:00:00 Test Item Value Reference Range Interpretation Comments TSH, THIRD GENERATION (test code 1.030 UIU/ML = 2821) FREE T4 (THYROXINE) (test code = 1.37 NG/DL 2823) HEMOGLOBIN A1c [ADDED]2021-11-27 00:00:00 Test Item Value Reference Range Interpretation Comments HEMOGLOBIN A1c (test code = 92520) 7.5 % HEMOGLOBIN A1c [ADDED]2021-11-27 00:00:00 Test Item Value Reference Range Interpretation Comments HEMOGLOBIN A1c (test code = 04131) 7.5 % HEMOGLOBIN A1c [ADDED]2021-11-27 00:00:00 Test Item Value Reference Range Interpretation Comments HEMOGLOBIN A1c (test code = 37922) 7.5 % HEMOGLOBIN [id number] 04:44:23 Test Item Value Reference Range Interpretation Comments HEMOGLOBIN A1c (test 7.9 % 4.2-5.6 H AMERIC AN DIABETES code = 15963) ASSOCIATION IDELINES FOR HGB A1C: PREDIABETES/INC REASED RISK . . . . . . . 5.7 -6.4% DIAGNOSIS OF DI ABETES . . . . . . . . . >=6 .5% WITH CONFIRMATION OR APPROPRIATE SYMPTOMS NOTE: ASSAY MAY BE AFFECTED BY HEMOGLOBINOPATH IES (SICKLE CELL ANEMIA, S- C DISEASE, OTHERS) OR AL FICIALLY LOWERED BY DECR EASED RED CELL SURVIVAL ( HEMOLYTIC ANEMIAS, BLOOD LOSS, ETC.). CONSIDER ALTERN ATE TESTING OR LABORATORY C ONSULTATION. LIPID [id number] 04:25:50 Test Item Value Reference Range Interpretation Comments CHOLESTEROL (test 228 MG/DL <200 H code = 2210) TRIGLYCERIDES (test 125 MG/DL <150 code = 2232) HDL CHOLESTEROL (test 58 MG/DL >39 code = 2220) CALC LDL CHOL (test 145 MG/DL <100 H NOTE: C ALCULATED LDL code = 2237) IS BASED ON STONE-ROSARIO METHOD WHICHINCLUDES ADJUSTABLE TRIGLYCERIDE:VL DL CHOLESTEROL RAT IO.THIS FACTOR VARIES B Y MEASURED TRIGLY CERIDE AND NON-HDLCHOL ESTEROL CONCENTRATIONS WITH INCREASED CALCU LATED LDL SEENIN HIGH ER TRIGLYCERIDE OR LOWER NON-HDL SPECIME NS. FOR MOREINFORMATION , SEE CLIENT ANNOUNCE MENT AT [email or web address] [email or web address] RATIO LDL/HDL 2.50 RATIO <3.22 UNLESS O THERWISE (test code = 2238) INDICATED , ALL TESTING PERFORMED [facility], [facility]. [address] [place] [address] [facility] DIRECTOR: JED PRADHAN M.D. CLIA NUMBER [id number] CAP ACCREDITATION N O. [id number] LIPID [id number] 00:00:00 Test Item Value Reference Range Interpretation Comments CHOLESTEROL (test code = 2210) 228 MG/DL TRIGLYCERIDES (test code = 2232) 125 MG/DL HDL CHOLESTEROL (test code = 2220) 58 MG/DL CALC LDL CHOL (test code = 2237) 145 MG/DL RISK RATIO LDL/HDL (test code = 2.50 RATIO 2238) LIPID [id number] 00:00:00 Test Item Value Reference Range Interpretation Comments CHOLESTEROL (test code = 2210) 228 MG/DL TRIGLYCERIDES (test code = 2232) 125 MG/DL HDL CHOLESTEROL (test code = 2220) 58 MG/DL CALC LDL CHOL (test code = 2237) 145 MG/DL RISK RATIO LDL/HDL (test code = 2.50 RATIO 2238) HEMOGLOBIN [id number] 00:00:00 Test Item Value Reference Range Interpretation Comments HEMOGLOBIN A1c (test code = 08747) 7.9 % HEMOGLOBIN [id number] 00:00:00 Test Item Value Reference Range Interpretation Comments HEMOGLOBIN A1c (test code = 25257) 7.9 % HEMOGLOBIN [id number] 00:00:00 Test Item Value Reference Range Interpretation Comments HEMOGLOBIN A1c (test code = 81647) 7.9 % LIPID [id number] 00:00:00 Test Item Value Reference Range Interpretation Comments CHOLESTEROL (test code = 2210) 228 MG/DL TRIGLYCERIDES (test code = 2232) 125 MG/DL HDL CHOLESTEROL (test code = 2220) 58 MG/DL CALC LDL CHOL (test code = 2237) 145 MG/DL RISK RATIO LDL/HDL (test code = 2.50 RATIO 2238) LIPID [id number] 00:00:00 Test Item Value Reference Range Interpretation Comments CHOLESTEROL (test code = 2210) 228 MG/DL TRIGLYCERIDES (test code = 2232) 125 MG/DL HDL CHOLESTEROL (test code = 2220) 58 MG/DL CALC LDL CHOL (test code = 2237) 145 MG/DL RISK RATIO LDL/HDL (test code = 2.50 RATIO 2238) HEMOGLOBIN [id number] 00:00:00 Test Item Value Reference Range Interpretation Comments HEMOGLOBIN A1c (test code = 30486) 7.9 % HEMOGLOBIN [id number] 00:00:00 Test Item Value Reference Range Interpretation Comments HEMOGLOBIN A1c (test code = 30551) 7.9 % HEMOGLOBIN [id number] 00:00:00 Test Item Value Reference Range Interpretation Comments HEMOGLOBIN A1c (test code = 41127) 7.9 % LIPID [id number] 00:00:00 Test Item Value Reference Range Interpretation Comments CHOLESTEROL (test code = 2210) 219 MG/DL TRIGLYCERIDES (test code = 2232) 137 MG/DL HDL CHOLESTEROL (test code = 2220) 64 MG/DL CALC LDL CHOL (test code = 2237) 130 MG/DL RISK RATIO LDL/HDL (test code = 2.03 RATIO 2238) LIPID [id number] 00:00:00 Test Item Value Reference Range Interpretation Comments CHOLESTEROL (test code = 2210) 219 MG/DL TRIGLYCERIDES (test code = 2232) 137 MG/DL HDL CHOLESTEROL (test code = 2220) 64 MG/DL CALC LDL CHOL (test code = 2237) 130 MG/DL RISK RATIO LDL/HDL (test code = 2.03 RATIO 2238) COMPREHENSIVE METABOLIC [id number] 00:00:00 Test Item Value Reference Range Interpretation Comments GLUCOSE (test code = 2217) 148 MG/DL BUN (test code = 2208) 14 MG/DL CREATININE (test code = 2214) 0.61 MG/DL eGFR AMER. (test code 117 ML/MIN/1.73 = 94123) eGFR NON- AMER. (test 101 ML/MIN/1.73 code = 20321) CALC BUN/CREAT (test code = 23 RATIO 2235) SODIUM (test code = 2231) 141 MEQ/L POTASSIUM (test code = 2228) 4.1 MEQ/L CHLORIDE (test code = 2215) 104 MEQ/L CARBON DIOXIDE (test code = 26 MEQ/L 2205) CALCIUM (test code = 2209) 9.7 MG/DL PROTEIN, TOTAL (test code = 7.5 G/DL 2228) ALBUMIN (test code = 2201) 4.7 G/DL CALC GLOBULIN (test code = 2.8 G/DL 0) CALC A/G RATIO (test code = 1.7 RATIO 2234) BILIRUBIN, TOTAL (test code = 0.2 MG/DL 2206) ALKALINE PHOSPHATASE (test 98 U/L code = 2204) AST (test code = 2218) 13 U/L ALT (test code = 2219) 11 U/L COMPREHENSIVE METABOLIC [id number] 00:00:00 Test Item Value Reference Range Interpretation Comments GLUCOSE (test code = 2217) 148 MG/DL BUN (test code = 2208) 14 MG/DL CREATININE (test code = 2214) 0.61 MG/DL eGFR AMER. (test code 117 ML/MIN/1.73 = 80643) eGFR NON- AMER. (test 101 ML/MIN/1.73 code = 40739) CALC BUN/CREAT (test code = 23 RATIO 2235) SODIUM (test code = 2231) 141 MEQ/L POTASSIUM (test code = 2228) 4.1 MEQ/L CHLORIDE (test code = 2215) 104 MEQ/L CARBON DIOXIDE (test code = 26 MEQ/L 2205) CALCIUM (test code = 2209) 9.7 MG/DL PROTEIN, TOTAL (test code = 7.5 G/DL 2228) ALBUMIN (test code = 220) 4.7 G/DL CALC GLOBULIN (test code = 2.8 G/DL 2239) CALC A/G RATIO (test code = 1.7 RATIO 2233) BILIRUBIN, TOTAL (test code = 0.2 MG/DL 2206) ALKALINE PHOSPHATASE (test 98 U/L code = 2204) AST (test code = 2218) 13 U/L ALT (test code = 2219) 11 U/L [id number] 00:00:00 Test Item Value Reference Range Interpretation Comments TSH, THIRD GENERATION (test code 1.820 UIU/ML = 2821) [id number] 00:00:00 Test Item Value Reference Range Interpretation Comments TSH, THIRD GENERATION (test code 1.820 UIU/ML = 2821) [id number] 00:00:00 Test Item Value Reference Range Interpretation Comments TSH, THIRD GENERATION (test code 1.820 UIU/ML = 2821) MICROALBUMIN, [id number] 00:00:00 Test Item Value Reference Range Interpretation Comments ALBUMIN, URINE, RANDOM (test code = 0.3 MG/DL 16041) MICROALBUMIN, [id number] 00:00:00 Test Item Value Reference Range Interpretation Comments ALBUMIN, URINE, RANDOM (test code = 0.3 MG/DL 37764) HEMOGLOBIN [id number] 00:00:00 Test Item Value Reference Range Interpretation Comments HEMOGLOBIN A1c (test code = 58737) 7.7 % HEMOGLOBIN [id number] 00:00:00 Test Item Value Reference Range Interpretation Comments HEMOGLOBIN A1c (test code = 62856) 7.7 % HEMOGLOBIN [id number] 00:00:00 Test Item Value Reference Range Interpretation Comments HEMOGLOBIN A1c (test code = 74180) 7.7 % LIPID [id number] 00:00:00 Test Item Value Reference Range Interpretation Comments CHOLESTEROL (test code = 2210) 219 MG/DL TRIGLYCERIDES (test code = 2232) 137 MG/DL HDL CHOLESTEROL (test code = 2220) 64 MG/DL CALC LDL CHOL (test code = 2237) 130 MG/DL RISK RATIO LDL/HDL (test code = 2.03 RATIO 2238) LIPID [id number] 00:00:00 Test Item Value Reference Range Interpretation Comments CHOLESTEROL (test code = 2210) 219 MG/DL TRIGLYCERIDES (test code = 2232) 137 MG/DL HDL CHOLESTEROL (test code = 2220) 64 MG/DL CALC LDL CHOL (test code = 2237) 130 MG/DL RISK RATIO LDL/HDL (test code = 2.03 RATIO 2238) COMPREHENSIVE METABOLIC [id number] 00:00:00 Test Item Value Reference Range Interpretation Comments GLUCOSE (test code = 2217) 148 MG/DL BUN (test code = 2208) 14 MG/DL CREATININE (test code = 2214) 0.61 MG/DL eGFR AMER. (test code 117 ML/MIN/1.73 = 13085) eGFR NON- AMER. (test 101 ML/MIN/1.73 code = 21396) CALC BUN/CREAT (test code = 23 RATIO 2235) SODIUM (test code = 2231) 141 MEQ/L POTASSIUM (test code = 2228) 4.1 MEQ/L CHLORIDE (test code = 2215) 104 MEQ/L CARBON DIOXIDE (test code = 26 MEQ/L 2205) CALCIUM (test code = 2209) 9.7 MG/DL PROTEIN, TOTAL (test code = 7.5 G/DL 2228) ALBUMIN (test code = 2201) 4.7 G/DL CALC GLOBULIN (test code = 2.8 G/DL 2239) CALC A/G RATIO (test code = 1.7 RATIO 2234) BILIRUBIN, TOTAL (test code = 0.2 MG/DL 2206) ALKALINE PHOSPHATASE (test 98 U/L code = 2204) AST (test code = 2218) 13 U/L ALT (test code = 2219) 11 U/L COMPREHENSIVE METABOLIC [id number] 00:00:00 Test Item Value Reference Range Interpretation Comments GLUCOSE (test code = 2217) 148 MG/DL BUN (test code = 2208) 14 MG/DL CREATININE (test code = 2214) 0.61 MG/DL eGFR AMER. (test code 117 ML/MIN/1.73 = 98240) eGFR NON- AMER. (test 101 ML/MIN/1.73 code = 24306) CALC BUN/CREAT (test code = 23 RATIO 2235) SODIUM (test code = 2231) 141 MEQ/L POTASSIUM (test code = 2228) 4.1 MEQ/L CHLORIDE (test code = 2215) 104 MEQ/L CARBON DIOXIDE (test code = 26 MEQ/L 2205) CALCIUM (test code = 2209) 9.7 MG/DL PROTEIN, TOTAL (test code = 7.5 G/DL 2228) ALBUMIN (test code = 2201) 4.7 G/DL CALC GLOBULIN (test code = 2.8 G/DL 2240) CALC A/G RATIO (test code = 1.7 RATIO 2234) BILIRUBIN, TOTAL (test code = 0.2 MG/DL 2206) ALKALINE PHOSPHATASE (test 98 U/L code = 2204) AST (test code = 2218) 13 U/L ALT (test code = 2219) 11 U/L [id number] 00:00:00 Test Item Value Reference Range Interpretation Comments TSH, THIRD GENERATION (test code 1.820 UIU/ML = 2821) [id number] 00:00:00 Test Item Value Reference Range Interpretation Comments TSH, THIRD GENERATION (test code 1.820 UIU/ML = 2821) [id number] 00:00:00 Test Item Value Reference Range Interpretation Comments TSH, THIRD GENERATION (test code 1.820 UIU/ML = 2821) MICROALBUMIN, [id number] 00:00:00 Test Item Value Reference Range Interpretation Comments ALBUMIN, URINE, RANDOM (test code = 0.3 MG/DL 14254) MICROALBUMIN, [id number] 00:00:00 Test Item Value Reference Range Interpretation Comments ALBUMIN, URINE, RANDOM (test code = 0.3 MG/DL 96150) HEMOGLOBIN [id number] 00:00:00 Test Item Value Reference Range Interpretation Comments HEMOGLOBIN A1c (test code = 19712) 7.7 % HEMOGLOBIN [id number] 00:00:00 Test Item Value Reference Range Interpretation Comments HEMOGLOBIN A1c (test code = 35602) 7.7 % HEMOGLOBIN [id number] 00:00:00 Test Item Value Reference Range Interpretation Comments HEMOGLOBIN A1c (test code = 48230) 7.7 % LIPID [id number] 00:00:00 Test Item Value Reference Range Interpretation Comments CHOLESTEROL (test code = 2210) 234 MG/DL TRIGLYCERIDES (test code = 2232) 150 MG/DL HDL CHOLESTEROL (test code = 2220) 62 MG/DL CALC LDL CHOL (test code = 2237) 144 MG/DL RISK RATIO LDL/HDL (test code = 2.32 RATIO 2238) LIPID [id number] 00:00:00 Test Item Value Reference Range Interpretation Comments CHOLESTEROL (test code = 2210) 234 MG/DL TRIGLYCERIDES (test code = 2232) 150 MG/DL HDL CHOLESTEROL (test code = 2220) 62 MG/DL CALC LDL CHOL (test code = 2237) 144 MG/DL RISK RATIO LDL/HDL (test code = 2.32 RATIO 2238) HEMOGLOBIN [id number] 00:00:00 Test Item Value Reference Range Interpretation Comments HEMOGLOBIN A1c (test code = 19143) 7.9 % HEMOGLOBIN [id number] 00:00:00 Test Item Value Reference Range Interpretation Comments HEMOGLOBIN A1c (test code = 56793) 7.9 % HEMOGLOBIN [id number] 00:00:00 Test Item Value Reference Range Interpretation Comments HEMOGLOBIN A1c (test code = 53263) 7.9 % LIPID [id number] 00:00:00 Test Item Value Reference Range Interpretation Comments CHOLESTEROL (test code = 2210) 234 MG/DL TRIGLYCERIDES (test code = 2232) 150 MG/DL HDL CHOLESTEROL (test code = 2220) 62 MG/DL CALC LDL CHOL (test code = 2237) 144 MG/DL RISK RATIO LDL/HDL (test code = 2.32 RATIO 2238) LIPID [id number] 00:00:00 Test Item Value Reference Range Interpretation Comments CHOLESTEROL (test code = 2210) 234 MG/DL TRIGLYCERIDES (test code = 2232) 150 MG/DL HDL CHOLESTEROL (test code = 2220) 62 MG/DL CALC LDL CHOL (test code = 2237) 144 MG/DL RISK RATIO LDL/HDL (test code = 2.32 RATIO 2238) HEMOGLOBIN [id number] 00:00:00 Test Item Value Reference Range Interpretation Comments HEMOGLOBIN A1c (test code = 37670) 7.9 % HEMOGLOBIN [id number] 00:00:00 Test Item Value Reference Range Interpretation Comments HEMOGLOBIN A1c (test code = 30373) 7.9 % HEMOGLOBIN [id number] 00:00:00 Test Item Value Reference Range Interpretation Comments HEMOGLOBIN A1c (test code = 69869) 7.9 % LIPID [id number] 00:00:00 Test Item Value Reference Range Interpretation Comments CHOLESTEROL (test code = 2210) 220 MG/DL TRIGLYCERIDES (test code = 2232) 90 MG/DL HDL CHOLESTEROL (test code = 2220) 63 MG/DL CALC LDL CHOL (test code = 2237) 138 MG/DL RISK RATIO LDL/HDL (test code = 2.19 RATIO 2238) COMPREHENSIVE METABOLIC [id number] 00:00:00 Test Item Value Reference Range Interpretation Comments GLUCOSE (test code = 2217) 140 MG/DL BUN (test code = 2208) 13 MG/DL CREATININE (test code = 2214) 0.54 MG/DL eGFR AMER. (test code 121 ML/MIN/1.73 = 83775) eGFR NON- AMER. (test 105 ML/MIN/1.73 code = 91027) CALC BUN/CREAT (test code = 24 RATIO 2235) SODIUM (test code = 2231) 142 MEQ/L POTASSIUM (test code = 2228) 4.6 MEQ/L CHLORIDE (test code = 2215) 105 MEQ/L CARBON DIOXIDE (test code = 27 MEQ/L 2205) CALCIUM (test code = 2209) 9.5 MG/DL PROTEIN, TOTAL (test code = 6.9 G/DL 2228) ALBUMIN (test code = 2201) 4.4 G/DL CALC GLOBULIN (test code = 2.5 G/DL 2239) CALC A/G RATIO (test code = 1.8 RATIO 2234) BILIRUBIN, TOTAL (test code = <0.2 MG/DL 2206) ALKALINE PHOSPHATASE (test 99 U/L code = 2204) AST (test code = 2218) 13 U/L ALT (test code = 2219) 9 U/L COMPREHENSIVE METABOLIC [id number] 00:00:00 Test Item Value Reference Range Interpretation Comments GLUCOSE (test code = 2217) 140 MG/DL BUN (test code = 2208) 13 MG/DL CREATININE (test code = 2214) 0.54 MG/DL eGFR AMER. (test code 121 ML/MIN/1.73 = 83042) eGFR NON- AMER. (test 105 ML/MIN/1.73 code = 97004) CALC BUN/CREAT (test code = 24 RATIO 2235) SODIUM (test code = 2231) 142 MEQ/L POTASSIUM (test code = 2228) 4.6 MEQ/L CHLORIDE (test code = 2215) 105 MEQ/L CARBON DIOXIDE (test code = 27 MEQ/L 2206) CALCIUM (test code = 2209) 9.5 MG/DL PROTEIN, TOTAL (test code = 6.9 G/DL 2228) ALBUMIN (test code = 2201) 4.4 G/DL CALC GLOBULIN (test code = 2.5 G/DL 2240) CALC A/G RATIO (test code = 1.8 RATIO 2234) BILIRUBIN, TOTAL (test code = <0.2 MG/DL 2206) ALKALINE PHOSPHATASE (test 99 U/L code = 2204) AST (test code = 2218) 13 U/L ALT (test code = 2219) 9 U/L [id number] 00:00:00 Test Item Value Reference Range Interpretation Comments TSH, THIRD GENERATION (test code 1.620 UIU/ML = 2821) [id number] 00:00:00 Test Item Value Reference Range Interpretation Comments TSH, THIRD GENERATION (test code 1.620 UIU/ML = 2821) [id number] 00:00:00 Test Item Value Reference Range Interpretation Comments TSH, THIRD GENERATION (test code 1.620 UIU/ML = 2821) HEMOGLOBIN [id number] 00:00:00 Test Item Value Reference Range Interpretation Comments HEMOGLOBIN A1c (test code = 31661) 8.1 % HEMOGLOBIN [id number] 00:00:00 Test Item Value Reference Range Interpretation Comments HEMOGLOBIN A1c (test code = 76938) 8.1 % HEMOGLOBIN [id number] 00:00:00 Test Item Value Reference Range Interpretation Comments HEMOGLOBIN A1c (test code = 04491) 8.1 % LIPID [id number] 00:00:00 Test Item Value Reference Range Interpretation Comments CHOLESTEROL (test code = 2210) 220 MG/DL TRIGLYCERIDES (test code = 2232) 90 MG/DL HDL CHOLESTEROL (test code = 2220) 63 MG/DL CALC LDL CHOL (test code = 2237) 138 MG/DL RISK RATIO LDL/HDL (test code = 2.19 RATIO 2238) LIPID [id number] 00:00:00 Test Item Value Reference Range Interpretation Comments CHOLESTEROL (test code = 2210) 220 MG/DL TRIGLYCERIDES (test code = 2232) 90 MG/DL HDL CHOLESTEROL (test code = 2220) 63 MG/DL CALC LDL CHOL (test code = 2237) 138 MG/DL RISK RATIO LDL/HDL (test code = 2.19 RATIO 2238) COMPREHENSIVE METABOLIC [id number] 00:00:00 Test Item Value Reference Range Interpretation Comments GLUCOSE (test code = 2217) 140 MG/DL BUN (test code = 2208) 13 MG/DL CREATININE (test code = 2214) 0.54 MG/DL eGFR AMER. (test code 121 ML/MIN/1.73 = 09604) eGFR NON- AMER. (test 105 ML/MIN/1.73 code = 91022) CALC BUN/CREAT (test code = 24 RATIO 2235) SODIUM (test code = 2231) 142 MEQ/L POTASSIUM (test code = 2228) 4.6 MEQ/L CHLORIDE (test code = 2215) 105 MEQ/L CARBON DIOXIDE (test code = 27 MEQ/L 2205) CALCIUM (test code = 2209) 9.5 MG/DL PROTEIN, TOTAL (test code = 6.9 G/DL 2228) ALBUMIN (test code = 2201) 4.4 G/DL CALC GLOBULIN (test code = 2.5 G/DL 0) CALC A/G RATIO (test code = 1.8 RATIO 2234) BILIRUBIN, TOTAL (test code = <0.2 MG/DL 2206) ALKALINE PHOSPHATASE (test 99 U/L code = 2204) AST (test code = 2218) 13 U/L ALT (test code = 2219) 9 U/L COMPREHENSIVE METABOLIC [id number] 00:00:00 Test Item Value Reference Range Interpretation Comments GLUCOSE (test code = 2217) 140 MG/DL BUN (test code = 2208) 13 MG/DL CREATININE (test code = 2214) 0.54 MG/DL eGFR AMER. (test code 121 ML/MIN/1.73 = 86791) eGFR NON- AMER. (test 105 ML/MIN/1.73 code = 11401) CALC BUN/CREAT (test code = 24 RATIO 2235) SODIUM (test code = 2231) 142 MEQ/L POTASSIUM (test code = 2228) 4.6 MEQ/L CHLORIDE (test code = 2215) 105 MEQ/L CARBON DIOXIDE (test code = 27 MEQ/L 2205) CALCIUM (test code = 2209) 9.5 MG/DL PROTEIN, TOTAL (test code = 6.9 G/DL 2228) ALBUMIN (test code = 2201) 4.4 G/DL CALC GLOBULIN (test code = 2.5 G/DL 2240) CALC A/G RATIO (test code = 1.8 RATIO 2234) BILIRUBIN, TOTAL (test code = <0.2 MG/DL 2206) ALKALINE PHOSPHATASE (test 99 U/L code = 2204) AST (test code = 2218) 13 U/L ALT (test code = 2219) 9 U/L [id number] 00:00:00 Test Item Value Reference Range Interpretation Comments TSH, THIRD GENERATION (test code 1.620 UIU/ML = 2821) [id number] 00:00:00 Test Item Value Reference Range Interpretation Comments TSH, THIRD GENERATION (test code 1.620 UIU/ML = 2821) [id number] 00:00:00 Test Item Value Reference Range Interpretation Comments TSH, THIRD GENERATION (test code 1.620 UIU/ML = 2821) HEMOGLOBIN [id number] 00:00:00 Test Item Value Reference Range Interpretation Comments HEMOGLOBIN A1c (test code = 50834) 8.1 % HEMOGLOBIN [id number] 00:00:00 Test Item Value Reference Range Interpretation Comments HEMOGLOBIN A1c (test code = 50418) 8.1 % HEMOGLOBIN [id number] 00:00:00 Test Item Value Reference Range Interpretation Comments HEMOGLOBIN A1c (test code = 68078) 8.1 % LIPID [id number] 00:00:00 Test Item Value Reference Range Interpretation Comments CHOLESTEROL (test code = 2210) 220 MG/DL TRIGLYCERIDES (test code = 2232) 90 MG/DL HDL CHOLESTEROL (test code = 2220) 63 MG/DL CALC LDL CHOL (test code = 2237) 138 MG/DL RISK RATIO LDL/HDL (test code = 2.19 RATIO 2238) LIPID [id number] 00:00:00 Test Item Value Reference Range Interpretation Comments CHOLESTEROL (test code = TEST NOT PERFORMED 2210) MG/DL TRIGLYCERIDES (test code TEST NOT PERFORMED = 2232) MG/DL HDL CHOLESTEROL (test TEST NOT PERFORMED code = 2220) MG/DL CALC LDL CHOL (test code TEST NOT PERFORMED = 2237) MG/DL RISK RATIO LDL/HDL (test TEST NOT PERFORMED code = 2238) RATIO LIPID [id number] 00:00:00 Test Item Value Reference Range Interpretation Comments CHOLESTEROL (test code = TEST NOT PERFORMED 2210) MG/DL TRIGLYCERIDES (test code TEST NOT PERFORMED = 2232) MG/DL HDL CHOLESTEROL (test TEST NOT PERFORMED code = 2220) MG/DL CALC LDL CHOL (test code TEST NOT PERFORMED = 2237) MG/DL RISK RATIO LDL/HDL (test TEST NOT PERFORMED code = 2238) RATIO COMPREHENSIVE METABOLIC [id number] 00:00:00 Test Item Value Reference Range Interpretation Comments GLUCOSE (test code = TEST NOT PERFORMED 2216) MG/DL BUN (test code = 220) TEST NOT PERFORMED MG/DL CREATININE (test code = TEST NOT PERFORMED 2214) MG/DL eGFR AMER. (test TEST NOT PERFORMED code = 51268) ML/MIN/1.73 eGFR NON- AMER. TEST NOT PERFORMED (test code = 61943) ML/MIN/1.73 CALC BUN/CREAT (test TEST NOT PERFORMED code = 2235) RATIO SODIUM (test code = TEST NOT PERFORMED 2230) MEQ/L POTASSIUM (test code = TEST NOT PERFORMED 2227) MEQ/L CHLORIDE (test code = TEST NOT PERFORMED 2214) MEQ/L CARBON DIOXIDE (test TEST NOT PERFORMED code = 2205) MEQ/L CALCIUM (test code = TEST NOT PERFORMED 2208) MG/DL PROTEIN, TOTAL (test TEST NOT PERFORMED code = 222) G/DL ALBUMIN (test code = TEST NOT PERFORMED 2200) G/DL CALC GLOBULIN (test code TEST NOT PERFORMED = 2240) G/DL CALC A/G RATIO (test TEST NOT PERFORMED code = 2234) RATIO BILIRUBIN, TOTAL (test TEST NOT PERFORMED code = 7) MG/DL ALKALINE PHOSPHATASE TEST NOT PERFORMED (test code = 2203) U/L AST (test code = 2217) TEST NOT PERFORMED U/L ALT (test code = 221) TEST NOT PERFORMED U/L COMPREHENSIVE METABOLIC [id number] 00:00:00 Test Item Value Reference Range Interpretation Comments GLUCOSE (test code = TEST NOT PERFORMED 2216) MG/DL BUN (test code = 2207) TEST NOT PERFORMED MG/DL CREATININE (test code = TEST NOT PERFORMED 2213) MG/DL eGFR AMER. (test TEST NOT PERFORMED code = 80275) ML/MIN/1.73 eGFR NON- AMER. TEST NOT PERFORMED (test code = 69403) ML/MIN/1.73 CALC BUN/CREAT (test TEST NOT PERFORMED code = 2234) RATIO SODIUM (test code = TEST NOT PERFORMED 2230) MEQ/L POTASSIUM (test code = TEST NOT PERFORMED 2227) MEQ/L CHLORIDE (test code = TEST NOT PERFORMED 2214) MEQ/L CARBON DIOXIDE (test TEST NOT PERFORMED code = 2205) MEQ/L CALCIUM (test code = TEST NOT PERFORMED 2208) MG/DL PROTEIN, TOTAL (test TEST NOT PERFORMED code = 2228) G/DL ALBUMIN (test code = TEST NOT PERFORMED 2200) G/DL CALC GLOBULIN (test code TEST NOT PERFORMED = 2240) G/DL CALC A/G RATIO (test TEST NOT PERFORMED code = 2234) RATIO BILIRUBIN, TOTAL (test TEST NOT PERFORMED code = 2207) MG/DL ALKALINE PHOSPHATASE TEST NOT PERFORMED (test code = 2203) U/L AST (test code = 2218) TEST NOT PERFORMED U/L ALT (test code = 221) TEST NOT PERFORMED U/L [id number] 00:00:00 Test Item Value Reference Range Interpretation Comments TSH, THIRD GENERATION TEST NOT PERFORMED (test code = 2821) UIU/ML [id number] 00:00:00 Test Item Value Reference Range Interpretation Comments TSH, THIRD GENERATION TEST NOT PERFORMED (test code = 2821) UIU/ML [id number] 00:00:00 Test Item Value Reference Range Interpretation Comments TSH, THIRD GENERATION TEST NOT PERFORMED (test code = 2821) UIU/ML HEMOGLOBIN [id number] 00:00:00 Test Item Value Reference Range Interpretation Comments HEMOGLOBIN A1c (test code = 86193) 7.6 % HEMOGLOBIN [id number] 00:00:00 Test Item Value Reference Range Interpretation Comments HEMOGLOBIN A1c (test code = 07888) 7.6 % HEMOGLOBIN [id number] 00:00:00 Test Item Value Reference Range Interpretation Comments HEMOGLOBIN A1c (test code = 74915) 7.6 % LIPID [id number] 00:00:00 Test Item Value Reference Range Interpretation Comments CHOLESTEROL (test code = TEST NOT PERFORMED 2210) MG/DL TRIGLYCERIDES (test code TEST NOT PERFORMED = 2232) MG/DL HDL CHOLESTEROL (test TEST NOT PERFORMED code = 2220) MG/DL CALC LDL CHOL (test code TEST NOT PERFORMED = 2237) MG/DL RISK RATIO LDL/HDL (test TEST NOT PERFORMED code = 2238) RATIO LIPID [id number] 00:00:00 Test Item Value Reference Range Interpretation Comments CHOLESTEROL (test code = TEST NOT PERFORMED 2210) MG/DL TRIGLYCERIDES (test code TEST NOT PERFORMED = 2232) MG/DL HDL CHOLESTEROL (test TEST NOT PERFORMED code = 2220) MG/DL CALC LDL CHOL (test code TEST NOT PERFORMED = 2237) MG/DL RISK RATIO LDL/HDL (test TEST NOT PERFORMED code = 2238) RATIO COMPREHENSIVE METABOLIC [id number] 00:00:00 Test Item Value Reference Range Interpretation Comments GLUCOSE (test code = TEST NOT PERFORMED 2216) MG/DL BUN (test code = 2208) TEST NOT PERFORMED MG/DL CREATININE (test code = TEST NOT PERFORMED 2214) MG/DL eGFR AMER. (test TEST NOT PERFORMED code = 90297) ML/MIN/1.73 eGFR NON- AMER. TEST NOT PERFORMED (test code = 76140) ML/MIN/1.73 CALC BUN/CREAT (test TEST NOT PERFORMED code = 2235) RATIO SODIUM (test code = TEST NOT PERFORMED 1) MEQ/L POTASSIUM (test code = TEST NOT PERFORMED 8) MEQ/L CHLORIDE (test code = TEST NOT PERFORMED 2215) MEQ/L CARBON DIOXIDE (test TEST NOT PERFORMED code = 2205) MEQ/L CALCIUM (test code = TEST NOT PERFORMED 2208) MG/DL PROTEIN, TOTAL (test TEST NOT PERFORMED code = 2228) G/DL ALBUMIN (test code = TEST NOT PERFORMED 2200) G/DL CALC GLOBULIN (test code TEST NOT PERFORMED = 2240) G/DL CALC A/G RATIO (test TEST NOT PERFORMED code = 2234) RATIO BILIRUBIN, TOTAL (test TEST NOT PERFORMED code = 2206) MG/DL ALKALINE PHOSPHATASE TEST NOT PERFORMED (test code = 2203) U/L AST (test code = 2217) TEST NOT PERFORMED U/L ALT (test code = 221) TEST NOT PERFORMED U/L COMPREHENSIVE METABOLIC [id number] 00:00:00 Test Item Value Reference Range Interpretation Comments GLUCOSE (test code = TEST NOT PERFORMED 2216) MG/DL BUN (test code = 2207) TEST NOT PERFORMED MG/DL CREATININE (test code = TEST NOT PERFORMED 2213) MG/DL eGFR AMER. (test TEST NOT PERFORMED code = 18118) ML/MIN/1.73 eGFR NON- AMER. TEST NOT PERFORMED (test code = 83215) ML/MIN/1.73 CALC BUN/CREAT (test TEST NOT PERFORMED code = 2234) RATIO SODIUM (test code = TEST NOT PERFORMED 2230) MEQ/L POTASSIUM (test code = TEST NOT PERFORMED 2227) MEQ/L CHLORIDE (test code = TEST NOT PERFORMED 2214) MEQ/L CARBON DIOXIDE (test TEST NOT PERFORMED code = 2205) MEQ/L CALCIUM (test code = TEST NOT PERFORMED 2208) MG/DL PROTEIN, TOTAL (test TEST NOT PERFORMED code = 2228) G/DL ALBUMIN (test code = TEST NOT PERFORMED 2200) G/DL CALC GLOBULIN (test code TEST NOT PERFORMED = 2240) G/DL CALC A/G RATIO (test TEST NOT PERFORMED code = 2234) RATIO BILIRUBIN, TOTAL (test TEST NOT PERFORMED code = 2206) MG/DL ALKALINE PHOSPHATASE TEST NOT PERFORMED (test code = 2203) U/L AST (test code = 8) TEST NOT PERFORMED U/L ALT (test code = 221) TEST NOT PERFORMED U/L [id number] 00:00:00 Test Item Value Reference Range Interpretation Comments TSH, THIRD GENERATION TEST NOT PERFORMED (test code = 2821) UIU/ML [id number] 00:00:00 Test Item Value Reference Range Interpretation Comments TSH, THIRD GENERATION TEST NOT PERFORMED (test code = 2821) UIU/ML [id number] 00:00:00 Test Item Value Reference Range Interpretation Comments TSH, THIRD GENERATION TEST NOT PERFORMED (test code = 2821) UIU/ML HEMOGLOBIN [id number] 00:00:00 Test Item Value Reference Range Interpretation Comments HEMOGLOBIN A1c (test code = 88959) 7.6 % HEMOGLOBIN [id number] 00:00:00 Test Item Value Reference Range Interpretation Comments HEMOGLOBIN A1c (test code = 55975) 7.6 % HEMOGLOBIN [id number] 00:00:00 Test Item Value Reference Range Interpretation Comments HEMOGLOBIN A1c (test code = 15008) 7.6 % HEMOGLOBIN [id number] 00:00:00 Test Item Value Reference Range Interpretation Comments HEMOGLOBIN A1c (test code = 20899) 8.1 % MICROALBUMIN, [id number] 00:00:00 Test Item Value Reference Range Interpretation Comments ALBUMIN, URINE, RANDOM (test code = 0.4 MG/DL 76594) MICROALBUMIN, [id number] 00:00:00 Test Item Value Reference Range Interpretation Comments ALBUMIN, URINE, RANDOM (test code = 0.4 MG/DL 80934) LIPID [id number] 00:00:00 Test Item Value Reference Range Interpretation Comments CHOLESTEROL (test code = 2210) 225 MG/DL TRIGLYCERIDES (test code = 2232) 78 MG/DL HDL CHOLESTEROL (test code = 2220) 62 MG/DL CALC LDL CHOL (test code = 2237) 145 MG/DL RISK RATIO LDL/HDL (test code = 2.34 RATIO 2238) LIPID [id number] 00:00:00 Test Item Value Reference Range Interpretation Comments CHOLESTEROL (test code = 2210) 225 MG/DL TRIGLYCERIDES (test code = 2232) 78 MG/DL HDL CHOLESTEROL (test code = 2220) 62 MG/DL CALC LDL CHOL (test code = 2237) 145 MG/DL RISK RATIO LDL/HDL (test code = 2.34 RATIO 2238) HEMOGLOBIN [id number] 00:00:00 Test Item Value Reference Range Interpretation Comments HEMOGLOBIN A1c (test code = 54039) 8.1 % HEMOGLOBIN [id number] 00:00:00 Test Item Value Reference Range Interpretation Comments HEMOGLOBIN A1c (test code = 87184) 8.1 % HEMOGLOBIN [id number] 00:00:00 Test Item Value Reference Range Interpretation Comments HEMOGLOBIN A1c (test code = 31318) 8.1 % MICROALBUMIN, [id number] 00:00:00 Test Item Value Reference Range Interpretation Comments ALBUMIN, URINE, RANDOM (test code = 0.4 MG/DL 71827) MICROALBUMIN, [id number] 00:00:00 Test Item Value Reference Range Interpretation Comments ALBUMIN, URINE, RANDOM (test code = 0.4 MG/DL 87376) LIPID [id number] 00:00:00 Test Item Value Reference Range Interpretation Comments CHOLESTEROL (test code = 2210) 225 MG/DL TRIGLYCERIDES (test code = 2232) 78 MG/DL HDL CHOLESTEROL (test code = 2220) 62 MG/DL CALC LDL CHOL (test code = 2237) 145 MG/DL RISK RATIO LDL/HDL (test code = 2.34 RATIO 2238) LIPID [id number] 00:00:00 Test Item Value Reference Range Interpretation Comments CHOLESTEROL (test code = 2210) 225 MG/DL TRIGLYCERIDES (test code = 2232) 78 MG/DL HDL CHOLESTEROL (test code = 2220) 62 MG/DL CALC LDL CHOL (test code = 2237) 145 MG/DL RISK RATIO LDL/HDL (test code = 2.34 RATIO 2238) HEMOGLOBIN [id number] 00:00:00 Test Item Value Reference Range Interpretation Comments HEMOGLOBIN A1c (test code = 57406) 8.1 % HEMOGLOBIN [id number] 00:00:00 Test Item Value Reference Range Interpretation Comments HEMOGLOBIN A1c (test code = 58571) 8.1 % COMPREHENSIVE METABOLIC [id number] 00:00:00 Test Item Value Reference Range Interpretation Comments GLUCOSE (test code = 2217) 139 MG/DL BUN (test code = 2208) 13 MG/DL CREATININE (test code = 2214) 0.67 MG/DL eGFR AMER. (test code 114 ML/MIN/1.73 = 85902) eGFR NON- AMER. (test 98 ML/MIN/1.73 code = 64086) CALC BUN/CREAT (test code = 19 RATIO 2235) SODIUM (test code = 2231) 140 MEQ/L POTASSIUM (test code = 2228) 4.2 MEQ/L CHLORIDE (test code = 2215) 102 MEQ/L CARBON DIOXIDE (test code = 26 MEQ/L 2205) CALCIUM (test code = 2209) 10.0 MG/DL PROTEIN, TOTAL (test code = 7.2 G/DL 2228) ALBUMIN (test code = 2201) 4.8 G/DL CALC GLOBULIN (test code = 2.4 G/DL 2239) CALC A/G RATIO (test code = 2.0 RATIO 2233) BILIRUBIN, TOTAL (test code = <0.2 MG/DL 2206) ALKALINE PHOSPHATASE (test 104 U/L code = 2204) AST (test code = 2218) 13 U/L ALT (test code = 2219) 9 U/L HEMOGLOBIN [id number] 00:00:00 Test Item Value Reference Range Interpretation Comments HEMOGLOBIN A1c (test code = 02148) 8.1 % HEMOGLOBIN [id number] 00:00:00 Test Item Value Reference Range Interpretation Comments HEMOGLOBIN A1c (test code = 83971) 8.1 % HEMOGLOBIN [id number] 00:00:00 Test Item Value Reference Range Interpretation Comments HEMOGLOBIN A1c (test code = 09105) 8.1 % COMPREHENSIVE METABOLIC [id number] 00:00:00 Test Item Value Reference Range Interpretation Comments GLUCOSE (test code = 2217) 139 MG/DL BUN (test code = 2208) 13 MG/DL CREATININE (test code = 2214) 0.67 MG/DL eGFR AMER. (test code 114 ML/MIN/1.73 = 08589) eGFR NON- AMER. (test 98 ML/MIN/1.73 code = 52563) CALC BUN/CREAT (test code = 19 RATIO 2234) SODIUM (test code = 2231) 140 MEQ/L POTASSIUM (test code = 2228) 4.2 MEQ/L CHLORIDE (test code = 2215) 102 MEQ/L CARBON DIOXIDE (test code = 26 MEQ/L 2205) CALCIUM (test code = 2209) 10.0 MG/DL PROTEIN, TOTAL (test code = 7.2 G/DL 2228) ALBUMIN (test code = 2201) 4.8 G/DL CALC GLOBULIN (test code = 2.4 G/DL 2240) CALC A/G RATIO (test code = 2.0 RATIO 2234) BILIRUBIN, TOTAL (test code = <0.2 MG/DL 220) ALKALINE PHOSPHATASE (test 104 U/L code = 2204) AST (test code = 2218) 13 U/L ALT (test code = 2219) 9 U/L COMPREHENSIVE METABOLIC [id number] 00:00:00 Test Item Value Reference Range Interpretation Comments GLUCOSE (test code = 2217) 139 MG/DL BUN (test code = 2208) 13 MG/DL CREATININE (test code = 2214) 0.67 MG/DL eGFR AMER. (test code 114 ML/MIN/1.73 = 56205) eGFR NON- AMER. (test 98 ML/MIN/1.73 code = 43424) CALC BUN/CREAT (test code = 19 RATIO 2235) SODIUM (test code = 2231) 140 MEQ/L POTASSIUM (test code = 2228) 4.2 MEQ/L CHLORIDE (test code = 2215) 102 MEQ/L CARBON DIOXIDE (test code = 26 MEQ/L 2205) CALCIUM (test code = 2209) 10.0 MG/DL PROTEIN, TOTAL (test code = 7.2 G/DL 2229) ALBUMIN (test code = 2201) 4.8 G/DL CALC GLOBULIN (test code = 2.4 G/DL 2240) CALC A/G RATIO (test code = 2.0 RATIO 2234) BILIRUBIN, TOTAL (test code = <0.2 MG/DL 2207) ALKALINE PHOSPHATASE (test 104 U/L code = 2204) AST (test code = 2218) 13 U/L ALT (test code = 2219) 9 U/L HEMOGLOBIN [id number] 00:00:00 Test Item Value Reference Range Interpretation Comments HEMOGLOBIN A1c (test code = 22042) 8.1 % HEMOGLOBIN [id number] 00:00:00 Test Item Value Reference Range Interpretation Comments HEMOGLOBIN A1c (test code = 99771) 8.1 % HEMOGLOBIN [id number] 00:00:00 Test Item Value Reference Range Interpretation Comments HEMOGLOBIN A1c (test code = 47576) 8.1 % COMPREHENSIVE METABOLIC [id number] 00:00:00 Test Item Value Reference Range Interpretation Comments GLUCOSE (test code = 2217) 139 MG/DL BUN (test code = 2208) 13 MG/DL CREATININE (test code = 2214) 0.67 MG/DL eGFR AMER. (test code 114 ML/MIN/1.73 = 57959) eGFR NON- AMER. (test 98 ML/MIN/1.73 code = 95280) CALC BUN/CREAT (test code = 19 RATIO 2235) SODIUM (test code = 2231) 140 MEQ/L POTASSIUM (test code = 2228) 4.2 MEQ/L CHLORIDE (test code = 2215) 102 MEQ/L CARBON DIOXIDE (test code = 26 MEQ/L 2205) CALCIUM (test code = 2209) 10.0 MG/DL PROTEIN, TOTAL (test code = 7.2 G/DL 2228) ALBUMIN (test code = 2201) 4.8 G/DL CALC GLOBULIN (test code = 2.4 G/DL 224) CALC A/G RATIO (test code = 2.0 RATIO 2234) BILIRUBIN, TOTAL (test code = <0.2 MG/DL 2206) ALKALINE PHOSPHATASE (test 104 U/L code = 2204) AST (test code = 2218) 13 U/L ALT (test code = 2219) 9 U/L LIPID [id number] 00:00:00 Test Item Value Reference Range Interpretation Comments CHOLESTEROL (test code = 2210) 222 MG/DL TRIGLYCERIDES (test code = 2232) 113 MG/DL HDL CHOLESTEROL (test code = 2220) 56 MG/DL CALC LDL CHOL (test code = 2237) 143 MG/DL RISK RATIO LDL/HDL (test code = 2.55 RATIO 2238) LIPID [id number] 00:00:00 Test Item Value Reference Range Interpretation Comments CHOLESTEROL (test code = 2210) 222 MG/DL TRIGLYCERIDES (test code = 2232) 113 MG/DL HDL CHOLESTEROL (test code = 2220) 56 MG/DL CALC LDL CHOL (test code = 2237) 143 MG/DL RISK RATIO LDL/HDL (test code = 2.55 RATIO 2238) COMPREHENSIVE METABOLIC [id number] 00:00:00 Test Item Value Reference Range Interpretation Comments GLUCOSE (test code = 2217) 154 MG/DL BUN (test code = 2208) 13 MG/DL CREATININE (test code = 2214) 0.57 MG/DL eGFR AMER. (test code 120 ML/MIN/1.73 = 62760) eGFR NON- AMER. (test 104 ML/MIN/1.73 code = 83218) CALC BUN/CREAT (test code = 23 RATIO 2235) SODIUM (test code = 2231) 140 MEQ/L POTASSIUM (test code = 2228) 4.1 MEQ/L CHLORIDE (test code = 2215) 101 MEQ/L CARBON DIOXIDE (test code = 24 MEQ/L 2205) CALCIUM (test code = 2209) 9.4 MG/DL PROTEIN, TOTAL (test code = 7.1 G/DL 2228) ALBUMIN (test code = 2201) 4.5 G/DL CALC GLOBULIN (test code = 2.6 G/DL 2240) CALC A/G RATIO (test code = 1.7 RATIO 2234) BILIRUBIN, TOTAL (test code = 0.2 MG/DL 2206) ALKALINE PHOSPHATASE (test 98 U/L code = 2204) AST (test code = 2218) 14 U/L ALT (test code = 2219) 10 U/L COMPREHENSIVE METABOLIC [id number] 00:00:00 Test Item Value Reference Range Interpretation Comments GLUCOSE (test code = 2217) 154 MG/DL BUN (test code = 2208) 13 MG/DL CREATININE (test code = 2214) 0.57 MG/DL eGFR AMER. (test code 120 ML/MIN/1.73 = 42145) eGFR NON- AMER. (test 104 ML/MIN/1.73 code = 46666) CALC BUN/CREAT (test code = 23 RATIO 2235) SODIUM (test code = 2231) 140 MEQ/L POTASSIUM (test code = 2228) 4.1 MEQ/L CHLORIDE (test code = 2215) 101 MEQ/L CARBON DIOXIDE (test code = 24 MEQ/L 220) CALCIUM (test code = 2209) 9.4 MG/DL PROTEIN, TOTAL (test code = 7.1 G/DL 2228) ALBUMIN (test code = 2201) 4.5 G/DL CALC GLOBULIN (test code = 2.6 G/DL 2240) CALC A/G RATIO (test code = 1.7 RATIO 2234) BILIRUBIN, TOTAL (test code = 0.2 MG/DL 2206) ALKALINE PHOSPHATASE (test 98 U/L code = 2204) AST (test code = 2218) 14 U/L ALT (test code = 2219) 10 U/L [id number] 00:00:00 Test Item Value Reference Range Interpretation Comments TSH, THIRD GENERATION (test code 1.720 UIU/ML = 2821) [id number] 00:00:00 Test Item Value Reference Range Interpretation Comments TSH, THIRD GENERATION (test code 1.720 UIU/ML = 2821) [id number] 00:00:00 Test Item Value Reference Range Interpretation Comments TSH, THIRD GENERATION (test code 1.720 UIU/ML = 2821) HEMOGLOBIN [id number] 00:00:00 Test Item Value Reference Range Interpretation Comments HEMOGLOBIN A1c (test code = 13298) 8.0 % HEMOGLOBIN [id number] 00:00:00 Test Item Value Reference Range Interpretation Comments HEMOGLOBIN A1c (test code = 00672) 8.0 % HEMOGLOBIN [id number] 00:00:00 Test Item Value Reference Range Interpretation Comments HEMOGLOBIN A1c (test code = 55884) 8.0 % LIPID [id number] 00:00:00 Test Item Value Reference Range Interpretation Comments CHOLESTEROL (test code = 2210) 222 MG/DL TRIGLYCERIDES (test code = 2232) 113 MG/DL HDL CHOLESTEROL (test code = 2220) 56 MG/DL CALC LDL CHOL (test code = 2237) 143 MG/DL RISK RATIO LDL/HDL (test code = 2.55 RATIO 2238) LIPID [id number] 00:00:00 Test Item Value Reference Range Interpretation Comments CHOLESTEROL (test code = 2210) 222 MG/DL TRIGLYCERIDES (test code = 2232) 113 MG/DL HDL CHOLESTEROL (test code = 2220) 56 MG/DL CALC LDL CHOL (test code = 2237) 143 MG/DL RISK RATIO LDL/HDL (test code = 2.55 RATIO 2238) COMPREHENSIVE METABOLIC [id number] 00:00:00 Test Item Value Reference Range Interpretation Comments GLUCOSE (test code = 2217) 154 MG/DL BUN (test code = 2208) 13 MG/DL CREATININE (test code = 2214) 0.57 MG/DL eGFR AMER. (test code 120 ML/MIN/1.73 = 10598) eGFR NON- AMER. (test 104 ML/MIN/1.73 code = 39819) CALC BUN/CREAT (test code = 23 RATIO 2235) SODIUM (test code = 2231) 140 MEQ/L POTASSIUM (test code = 2228) 4.1 MEQ/L CHLORIDE (test code = 2215) 101 MEQ/L CARBON DIOXIDE (test code = 24 MEQ/L 2206) CALCIUM (test code = 2209) 9.4 MG/DL PROTEIN, TOTAL (test code = 7.1 G/DL 2228) ALBUMIN (test code = 2201) 4.5 G/DL CALC GLOBULIN (test code = 2.6 G/DL 2240) CALC A/G RATIO (test code = 1.7 RATIO 2234) BILIRUBIN, TOTAL (test code = 0.2 MG/DL 2206) ALKALINE PHOSPHATASE (test 98 U/L code = 2204) AST (test code = 2218) 14 U/L ALT (test code = 2219) 10 U/L COMPREHENSIVE METABOLIC [id number] 00:00:00 Test Item Value Reference Range Interpretation Comments GLUCOSE (test code = 2217) 154 MG/DL BUN (test code = 2208) 13 MG/DL CREATININE (test code = 2214) 0.57 MG/DL eGFR AMER. (test code 120 ML/MIN/1.73 = 46708) eGFR NON- AMER. (test 104 ML/MIN/1.73 code = 44141) CALC BUN/CREAT (test code = 23 RATIO 2235) SODIUM (test code = 2231) 140 MEQ/L POTASSIUM (test code = 2228) 4.1 MEQ/L CHLORIDE (test code = 2215) 101 MEQ/L CARBON DIOXIDE (test code = 24 MEQ/L 2206) CALCIUM (test code = 2209) 9.4 MG/DL PROTEIN, TOTAL (test code = 7.1 G/DL 2228) ALBUMIN (test code = 2201) 4.5 G/DL CALC GLOBULIN (test code = 2.6 G/DL 2240) CALC A/G RATIO (test code = 1.7 RATIO 2234) BILIRUBIN, TOTAL (test code = 0.2 MG/DL 2206) ALKALINE PHOSPHATASE (test 98 U/L code = 2204) AST (test code = 2218) 14 U/L ALT (test code = 2219) 10 U/L [id number] 00:00:00 Test Item Value Reference Range Interpretation Comments TSH, THIRD GENERATION (test code 1.720 UIU/ML = 2821) [id number] 00:00:00 Test Item Value Reference Range Interpretation Comments TSH, THIRD GENERATION (test code 1.720 UIU/ML = 2821) [id number] 00:00:00 Test Item Value Reference Range Interpretation Comments TSH, THIRD GENERATION (test code 1.720 UIU/ML = 2821) HEMOGLOBIN [id number] 00:00:00 Test Item Value Reference Range Interpretation Comments HEMOGLOBIN A1c (test code = 57877) 8.0 % HEMOGLOBIN [id number] 00:00:00 Test Item Value Reference Range Interpretation Comments HEMOGLOBIN A1c (test code = 41464) 8.0 % HEMOGLOBIN [id number] 00:00:00 Test Item Value Reference Range Interpretation Comments HEMOGLOBIN A1c (test code = 57704) 8.0 % HEMOGLOBIN [id number] 00:00:00 Test Item Value Reference Range Interpretation Comments HEMOGLOBIN A1c (test code = 32069) 7.3 % HEMOGLOBIN [id number] 00:00:00 Test Item Value Reference Range Interpretation Comments HEMOGLOBIN A1c (test code = 78736) 7.3 % HEMOGLOBIN [id number] 00:00:00 Test Item Value Reference Range Interpretation Comments HEMOGLOBIN A1c (test code = 08707) 7.3 % COMPREHENSIVE METABOLIC [id number] 00:00:00 Test Item Value Reference Range Interpretation Comments GLUCOSE (test code = 2217) 143 MG/DL BUN (test code = 2208) 12 MG/DL CREATININE (test code = 2214) 0.54 MG/DL eGFR AMER. (test code 123 ML/MIN/1.73 = 06991) eGFR NON- AMER. (test 106 ML/MIN/1.73 code = 83917) CALC BUN/CREAT (test code = 22 RATIO 2235) SODIUM (test code = 2231) 142 MEQ/L POTASSIUM (test code = 2228) 4.5 MEQ/L CHLORIDE (test code = 2215) 103 MEQ/L CARBON DIOXIDE (test code = 25 MEQ/L 2205) CALCIUM (test code = 2209) 9.7 MG/DL PROTEIN, TOTAL (test code = 7.3 G/DL 2229) ALBUMIN (test code = 2201) 4.6 G/DL CALC GLOBULIN (test code = 2.7 G/DL 2240) CALC A/G RATIO (test code = 1.7 RATIO 2234) BILIRUBIN, TOTAL (test code = 0.2 MG/DL 2206) ALKALINE PHOSPHATASE (test 102 U/L code = 2204) AST (test code = 2218) 15 U/L ALT (test code = 2219) 9 U/L COMPREHENSIVE METABOLIC [id number] 00:00:00 Test Item Value Reference Range Interpretation Comments GLUCOSE (test code = 2217) 143 MG/DL BUN (test code = 2208) 12 MG/DL CREATININE (test code = 2214) 0.54 MG/DL eGFR AMER. (test code 123 ML/MIN/1.73 = 15759) eGFR NON- AMER. (test 106 ML/MIN/1.73 code = 92331) CALC BUN/CREAT (test code = 22 RATIO 2235) SODIUM (test code = 2231) 142 MEQ/L POTASSIUM (test code = 2228) 4.5 MEQ/L CHLORIDE (test code = 2215) 103 MEQ/L CARBON DIOXIDE (test code = 25 MEQ/L 2205) CALCIUM (test code = 2209) 9.7 MG/DL PROTEIN, TOTAL (test code = 7.3 G/DL 2228) ALBUMIN (test code = 2201) 4.6 G/DL CALC GLOBULIN (test code = 2.7 G/DL 2240) CALC A/G RATIO (test code = 1.7 RATIO 2234) BILIRUBIN, TOTAL (test code = 0.2 MG/DL 2206) ALKALINE PHOSPHATASE (test 102 U/L code = 2204) AST (test code = 2218) 15 U/L ALT (test code = 2219) 9 U/L [id number] 00:00:00 Test Item Value Reference Range Interpretation Comments TSH, THIRD GENERATION (test code 1.580 UIU/ML = 2821) [id number] 00:00:00 Test Item Value Reference Range Interpretation Comments TSH, THIRD GENERATION (test code 1.580 UIU/ML = 2821) [id number] 00:00:00 Test Item Value Reference Range Interpretation Comments TSH, THIRD GENERATION (test code 1.580 UIU/ML = 2821) LIPID [id number] 00:00:00 Test Item Value Reference Range Interpretation Comments CHOLESTEROL (test code = 2210) 221 MG/DL TRIGLYCERIDES (test code = 2232) 149 MG/DL HDL CHOLESTEROL (test code = 2220) 58 MG/DL CALC LDL CHOL (test code = 2237) 133 MG/DL RISK RATIO LDL/HDL (test code = 2.30 RATIO 2238) LIPID [id number] 00:00:00 Test Item Value Reference Range Interpretation Comments CHOLESTEROL (test code = 2210) 221 MG/DL TRIGLYCERIDES (test code = 2232) 149 MG/DL HDL CHOLESTEROL (test code = 2220) 58 MG/DL CALC LDL CHOL (test code = 2237) 133 MG/DL RISK RATIO LDL/HDL (test code = 2.30 RATIO 2238) HEMOGLOBIN [id number] 00:00:00 Test Item Value Reference Range Interpretation Comments HEMOGLOBIN A1c (test code = 89675) 7.3 % HEMOGLOBIN [id number] 00:00:00 Test Item Value Reference Range Interpretation Comments HEMOGLOBIN A1c (test code = 09405) 7.3 % HEMOGLOBIN [id number] 00:00:00 Test Item Value Reference Range Interpretation Comments HEMOGLOBIN A1c (test code = 37900) 7.3 % COMPREHENSIVE METABOLIC [id number] 00:00:00 Test Item Value Reference Range Interpretation Comments GLUCOSE (test code = 2217) 143 MG/DL BUN (test code = 2208) 12 MG/DL CREATININE (test code = 2214) 0.54 MG/DL eGFR AMER. (test code 123 ML/MIN/1.73 = 16981) eGFR NON- AMER. (test 106 ML/MIN/1.73 code = 10455) CALC BUN/CREAT (test code = 22 RATIO 2235) SODIUM (test code = 2231) 142 MEQ/L POTASSIUM (test code = 2228) 4.5 MEQ/L CHLORIDE (test code = 2215) 103 MEQ/L CARBON DIOXIDE (test code = 25 MEQ/L 2205) CALCIUM (test code = 2209) 9.7 MG/DL PROTEIN, TOTAL (test code = 7.3 G/DL 2228) ALBUMIN (test code = 2201) 4.6 G/DL CALC GLOBULIN (test code = 2.7 G/DL 2240) CALC A/G RATIO (test code = 1.7 RATIO 2234) BILIRUBIN, TOTAL (test code = 0.2 MG/DL 2206) ALKALINE PHOSPHATASE (test 102 U/L code = 2204) AST (test code = 2218) 15 U/L ALT (test code = 2219) 9 U/L COMPREHENSIVE METABOLIC [id number] 00:00:00 Test Item Value Reference Range Interpretation Comments GLUCOSE (test code = 2217) 143 MG/DL BUN (test code = 2208) 12 MG/DL CREATININE (test code = 2214) 0.54 MG/DL eGFR AMER. (test code 123 ML/MIN/1.73 = 48832) eGFR NON- AMER. (test 106 ML/MIN/1.73 code = 06024) CALC BUN/CREAT (test code = 22 RATIO 2235) SODIUM (test code = 2231) 142 MEQ/L POTASSIUM (test code = 2228) 4.5 MEQ/L CHLORIDE (test code = 2215) 103 MEQ/L CARBON DIOXIDE (test code = 25 MEQ/L 2205) CALCIUM (test code = 2209) 9.7 MG/DL PROTEIN, TOTAL (test code = 7.3 G/DL 2228) ALBUMIN (test code = 2201) 4.6 G/DL CALC GLOBULIN (test code = 2.7 G/DL 2240) CALC A/G RATIO (test code = 1.7 RATIO 2234) BILIRUBIN, TOTAL (test code = 0.2 MG/DL 2206) ALKALINE PHOSPHATASE (test 102 U/L code = 2204) AST (test code = 2218) 15 U/L ALT (test code = 2219) 9 U/L [id number] 00:00:00 Test Item Value Reference Range Interpretation Comments TSH, THIRD GENERATION (test code 1.580 UIU/ML = 2821) [id number] 00:00:00 Test Item Value Reference Range Interpretation Comments TSH, THIRD GENERATION (test code 1.580 UIU/ML = 2821) [id number] 00:00:00 Test Item Value Reference Range Interpretation Comments TSH, THIRD GENERATION (test code 1.580 UIU/ML = 2821) LIPID [id number] 00:00:00 Test Item Value Reference Range Interpretation Comments CHOLESTEROL (test code = 2210) 221 MG/DL TRIGLYCERIDES (test code = 2232) 149 MG/DL HDL CHOLESTEROL (test code = 2220) 58 MG/DL CALC LDL CHOL (test code = 2237) 133 MG/DL RISK RATIO LDL/HDL (test code = 2.30 RATIO 2238) LIPID [id number] 00:00:00 Test Item Value Reference Range Interpretation Comments CHOLESTEROL (test code = 2210) 221 MG/DL TRIGLYCERIDES (test code = 2232) 149 MG/DL HDL CHOLESTEROL (test code = 2220) 58 MG/DL CALC LDL CHOL (test code = 2237) 133 MG/DL RISK RATIO LDL/HDL (test code = 2.30 RATIO 2238) LIPID [id number] 00:00:00 Test Item Value Reference Range Interpretation Comments CHOLESTEROL (test code = 2210) 198 MG/DL TRIGLYCERIDES (test code = 2232) 119 MG/DL HDL CHOLESTEROL (test code = 2220) 54 MG/DL CALC LDL CHOL (test code = 2237) 120 MG/DL RISK RATIO LDL/HDL (test code = 2.23 RATIO 2238) LIPID [id number] 00:00:00 Test Item Value Reference Range Interpretation Comments CHOLESTEROL (test code = 2210) 198 MG/DL TRIGLYCERIDES (test code = 2232) 119 MG/DL HDL CHOLESTEROL (test code = 2220) 54 MG/DL CALC LDL CHOL (test code = 2237) 120 MG/DL RISK RATIO LDL/HDL (test code = 2.23 RATIO 2238) HEMOGLOBIN [id number] 00:00:00 Test Item Value Reference Range Interpretation Comments HEMOGLOBIN A1c (test code = 19285) 7.4 % HEMOGLOBIN [id number] 00:00:00 Test Item Value Reference Range Interpretation Comments HEMOGLOBIN A1c (test code = 48933) 7.4 % HEMOGLOBIN [id number] 00:00:00 Test Item Value Reference Range Interpretation Comments HEMOGLOBIN A1c (test code = 55701) 7.4 % [id number] 00:00:00 Test Item Value Reference Range Interpretation Comments TSH, THIRD GENERATION (test code 2.530 UIU/ML = 2821) [id number] 00:00:00 Test Item Value Reference Range Interpretation Comments TSH, THIRD GENERATION (test code 2.530 UIU/ML = 2821) [id number] 00:00:00 Test Item Value Reference Range Interpretation Comments TSH, THIRD GENERATION (test code 2.530 UIU/ML = 2821) COMPREHENSIVE METABOLIC [id number] 00:00:00 Test Item Value Reference Range Interpretation Comments GLUCOSE (test code = 2217) 134 MG/DL BUN (test code = 2208) 11 MG/DL CREATININE (test code = 2214) 0.53 MG/DL eGFR AMER. (test code 124 ML/MIN/1.73 = 02207) eGFR NON- AMER. (test 107 ML/MIN/1.73 code = 18195) CALC BUN/CREAT (test code = 21 RATIO 2235) SODIUM (test code = 2231) 143 MEQ/L POTASSIUM (test code = 2228) 4.3 MEQ/L CHLORIDE (test code = 2215) 104 MEQ/L CARBON DIOXIDE (test code = 27 MEQ/L 2206) CALCIUM (test code = 2209) 9.8 MG/DL PROTEIN, TOTAL (test code = 7.4 G/DL 2228) ALBUMIN (test code = 2201) 4.7 G/DL CALC GLOBULIN (test code = 2.7 G/DL 0) CALC A/G RATIO (test code = 1.7 RATIO 4) BILIRUBIN, TOTAL (test code = 0.2 MG/DL 2206) ALKALINE PHOSPHATASE (test 94 U/L code = 2204) AST (test code = 2218) 13 U/L ALT (test code = 2219) 8 U/L COMPREHENSIVE METABOLIC [id number] 00:00:00 Test Item Value Reference Range Interpretation Comments GLUCOSE (test code = 2217) 134 MG/DL BUN (test code = 2208) 11 MG/DL CREATININE (test code = 2214) 0.53 MG/DL eGFR AMER. (test code 124 ML/MIN/1.73 = 84799) eGFR NON- AMER. (test 107 ML/MIN/1.73 code = 12600) CALC BUN/CREAT (test code = 21 RATIO 2235) SODIUM (test code = 2231) 143 MEQ/L POTASSIUM (test code = 2228) 4.3 MEQ/L CHLORIDE (test code = 2215) 104 MEQ/L CARBON DIOXIDE (test code = 27 MEQ/L 2206) CALCIUM (test code = 2209) 9.8 MG/DL PROTEIN, TOTAL (test code = 7.4 G/DL 222) ALBUMIN (test code = 2201) 4.7 G/DL CALC GLOBULIN (test code = 2.7 G/DL 2240) CALC A/G RATIO (test code = 1.7 RATIO 2234) BILIRUBIN, TOTAL (test code = 0.2 MG/DL 220) ALKALINE PHOSPHATASE (test 94 U/L code = 2204) AST (test code = 2218) 13 U/L ALT (test code = 2219) 8 U/L LIPID [id number] 00:00:00 Test Item Value Reference Range Interpretation Comments CHOLESTEROL (test code = 2210) 198 MG/DL TRIGLYCERIDES (test code = 2232) 119 MG/DL HDL CHOLESTEROL (test code = 2220) 54 MG/DL CALC LDL CHOL (test code = 2237) 120 MG/DL RISK RATIO LDL/HDL (test code = 2.23 RATIO 2238) LIPID [id number] 00:00:00 Test Item Value Reference Range Interpretation Comments CHOLESTEROL (test code = 2210) 198 MG/DL TRIGLYCERIDES (test code = 2232) 119 MG/DL HDL CHOLESTEROL (test code = 2220) 54 MG/DL CALC LDL CHOL (test code = 2237) 120 MG/DL RISK RATIO LDL/HDL (test code = 2.23 RATIO 2238) HEMOGLOBIN [id number] 00:00:00 Test Item Value Reference Range Interpretation Comments HEMOGLOBIN A1c (test code = 63820) 7.4 % HEMOGLOBIN [id number] 00:00:00 Test Item Value Reference Range Interpretation Comments HEMOGLOBIN A1c (test code = 36390) 7.4 % HEMOGLOBIN [id number] 00:00:00 Test Item Value Reference Range Interpretation Comments HEMOGLOBIN A1c (test code = 34226) 7.4 % [id number] 00:00:00 Test Item Value Reference Range Interpretation Comments TSH, THIRD GENERATION (test code 2.530 UIU/ML = 2821) [id number] 00:00:00 Test Item Value Reference Range Interpretation Comments TSH, THIRD GENERATION (test code 2.530 UIU/ML = 2821) [id number] 00:00:00 Test Item Value Reference Range Interpretation Comments TSH, THIRD GENERATION (test code 2.530 UIU/ML = 2821) COMPREHENSIVE METABOLIC [id number] 00:00:00 Test Item Value Reference Range Interpretation Comments GLUCOSE (test code = 2217) 134 MG/DL BUN (test code = 2208) 11 MG/DL CREATININE (test code = 2214) 0.53 MG/DL eGFR AMER. (test code 124 ML/MIN/1.73 = 92974) eGFR NON- AMER. (test 107 ML/MIN/1.73 code = 78911) CALC BUN/CREAT (test code = 21 RATIO 2235) SODIUM (test code = 2231) 143 MEQ/L POTASSIUM (test code = 2228) 4.3 MEQ/L CHLORIDE (test code = 2215) 104 MEQ/L CARBON DIOXIDE (test code = 27 MEQ/L 2205) CALCIUM (test code = 2209) 9.8 MG/DL PROTEIN, TOTAL (test code = 7.4 G/DL 2228) ALBUMIN (test code = 2201) 4.7 G/DL CALC GLOBULIN (test code = 2.7 G/DL 0) CALC A/G RATIO (test code = 1.7 RATIO 2234) BILIRUBIN, TOTAL (test code = 0.2 MG/DL 2206) ALKALINE PHOSPHATASE (test 94 U/L code = 2204) AST (test code = 2218) 13 U/L ALT (test code = 2219) 8 U/L COMPREHENSIVE METABOLIC [id number] 00:00:00 Test Item Value Reference Range Interpretation Comments GLUCOSE (test code = 2217) 134 MG/DL BUN (test code = 2208) 11 MG/DL CREATININE (test code = 2214) 0.53 MG/DL eGFR AMER. (test code 124 ML/MIN/1.73 = 71600) eGFR NON- AMER. (test 107 ML/MIN/1.73 code = 34317) CALC BUN/CREAT (test code = 21 RATIO 2235) SODIUM (test code = 2231) 143 MEQ/L POTASSIUM (test code = 2228) 4.3 MEQ/L CHLORIDE (test code = 2215) 104 MEQ/L CARBON DIOXIDE (test code = 27 MEQ/L 220) CALCIUM (test code = 2209) 9.8 MG/DL PROTEIN, TOTAL (test code = 7.4 G/DL 2228) ALBUMIN (test code = 2201) 4.7 G/DL CALC GLOBULIN (test code = 2.7 G/DL 2240) CALC A/G RATIO (test code = 1.7 RATIO 2234) BILIRUBIN, TOTAL (test code = 0.2 MG/DL 2206) ALKALINE PHOSPHATASE (test 94 U/L code = 2204) AST (test code = 2218) 13 U/L ALT (test code = 2219) 8 U/L HEMOGLOBIN [id number] 00:00:00 Test Item Value Reference Range Interpretation Comments HEMOGLOBIN A1c (test code = 28055) 7.2 % HEMOGLOBIN [id number] 00:00:00 Test Item Value Reference Range Interpretation Comments HEMOGLOBIN A1c (test code = 08327) 7.2 % COMPREHENSIVE METABOLIC [id number] 00:00:00 Test Item Value Reference Range Interpretation Comments GLUCOSE (test code = 2217) 125 MG/DL BUN (test code = 2208) 13 MG/DL CREATININE (test code = 2214) 0.53 MG/DL eGFR AMER. (test code 124 ML/MIN/1.73 = 47009) eGFR NON- AMER. (test 107 ML/MIN/1.73 code = 93130) CALC BUN/CREAT (test code = 25 RATIO 2235) SODIUM (test code = 2231) 142 MEQ/L POTASSIUM (test code = 2228) 4.2 MEQ/L CHLORIDE (test code = 2215) 102 MEQ/L CARBON DIOXIDE (test code = 26 MEQ/L 2205) CALCIUM (test code = 2209) 10.3 MG/DL PROTEIN, TOTAL (test code = 7.3 G/DL 2228) ALBUMIN (test code = 2201) 4.7 G/DL CALC GLOBULIN (test code = 2.6 G/DL 2240) CALC A/G RATIO (test code = 1.8 RATIO 2234) BILIRUBIN, TOTAL (test code = 0.2 MG/DL 2206) ALKALINE PHOSPHATASE (test 98 U/L code = 2204) AST (test code = 2218) 12 U/L ALT (test code = 2219) 7 U/L COMPREHENSIVE METABOLIC [id number] 00:00:00 Test Item Value Reference Range Interpretation Comments GLUCOSE (test code = 2217) 125 MG/DL BUN (test code = 2208) 13 MG/DL CREATININE (test code = 2214) 0.53 MG/DL eGFR AMER. (test code 124 ML/MIN/1.73 = 89351) eGFR NON- AMER. (test 107 ML/MIN/1.73 code = 86975) CALC BUN/CREAT (test code = 25 RATIO 2235) SODIUM (test code = 2231) 142 MEQ/L POTASSIUM (test code = 2228) 4.2 MEQ/L CHLORIDE (test code = 2215) 102 MEQ/L CARBON DIOXIDE (test code = 26 MEQ/L 2205) CALCIUM (test code = 2209) 10.3 MG/DL PROTEIN, TOTAL (test code = 7.3 G/DL 2228) ALBUMIN (test code = 2201) 4.7 G/DL CALC GLOBULIN (test code = 2.6 G/DL 2239) CALC A/G RATIO (test code = 1.8 RATIO 2233) BILIRUBIN, TOTAL (test code = 0.2 MG/DL 2206) ALKALINE PHOSPHATASE (test 98 U/L code = 220) AST (test code = 2218) 12 U/L ALT (test code = 2219) 7 U/L [id number] 00:00:00 Test Item Value Reference Range Interpretation Comments TSH, THIRD GENERATION (test code 1.490 UIU/ML = 2821) [id number] 00:00:00 Test Item Value Reference Range Interpretation Comments TSH, THIRD GENERATION (test code 1.490 UIU/ML = 2821) [id number] 00:00:00 Test Item Value Reference Range Interpretation Comments TSH, THIRD GENERATION (test code 1.490 UIU/ML = 2821) CBC W/AUTO [id number] 00:00:00 Test Item Value Reference Range Interpretation Comments WBC (test code = 1001) 5.9 K/UL RBC (test code = 1002) 4.56 M/UL HEMOGLOBIN (test code = 1003) 13.5 G/DL HEMATOCRIT (test code = 1004) 39.3 % MCV (test code = 1005) 86.2 fL MCH (test code = 1006) 29.6 PG MCHC (test code = 1007) 34.4 G/DL RDW (test code = 1038) 13.0 % NEUTROPHILS (test code = 1008) 51.6 % LYMPHOCYTES (test code = 1010) 29.5 % MONOCYTES (test code = 1011) 7.1 % EOSINOPHILS (test code = 1012) 10.8 % BASOPHILS (test code = 1013) 1.0 % PLATELET COUNT (test code = 1015) 323 K/UL CBC W/AUTO [id number] 00:00:00 Test Item Value Reference Range Interpretation Comments WBC (test code = 1001) 5.9 K/UL RBC (test code = 1002) 4.56 M/UL HEMOGLOBIN (test code = 1003) 13.5 G/DL HEMATOCRIT (test code = 1004) 39.3 % MCV (test code = 1005) 86.2 fL MCH (test code = 1006) 29.6 PG MCHC (test code = 1007) 34.4 G/DL RDW (test code = 1038) 13.0 % NEUTROPHILS (test code = 1008) 51.6 % LYMPHOCYTES (test code = 1010) 29.5 % MONOCYTES (test code = 1011) 7.1 % EOSINOPHILS (test code = 1012) 10.8 % BASOPHILS (test code = 1013) 1.0 % PLATELET COUNT (test code = 1015) 323 K/UL CBC W/AUTO [id number] 00:00:00 Test Item Value Reference Range Interpretation Comments WBC (test code = 1001) 5.9 K/UL RBC (test code = 1002) 4.56 M/UL HEMOGLOBIN (test code = 1003) 13.5 G/DL HEMATOCRIT (test code = 1004) 39.3 % MCV (test code = 1005) 86.2 fL MCH (test code = 1006) 29.6 PG MCHC (test code = 1007) 34.4 G/DL RDW (test code = 1038) 13.0 % NEUTROPHILS (test code = 1008) 51.6 % LYMPHOCYTES (test code = 1010) 29.5 % MONOCYTES (test code = 1011) 7.1 % EOSINOPHILS (test code = 1012) 10.8 % BASOPHILS (test code = 1013) 1.0 % PLATELET COUNT (test code = 1015) 323 K/UL HEMOGLOBIN [id number] 00:00:00 Test Item Value Reference Range Interpretation Comments HEMOGLOBIN A1c (test code = 44621) 7.2 % HEMOGLOBIN [id number] 00:00:00 Test Item Value Reference Range Interpretation Comments HEMOGLOBIN A1c (test code = 59293) 7.2 % HEMOGLOBIN [id number] 00:00:00 Test Item Value Reference Range Interpretation Comments HEMOGLOBIN A1c (test code = 70564) 7.2 % COMPREHENSIVE METABOLIC [id number] 00:00:00 Test Item Value Reference Range Interpretation Comments GLUCOSE (test code = 2217) 125 MG/DL BUN (test code = 2208) 13 MG/DL CREATININE (test code = 2214) 0.53 MG/DL eGFR AMER. (test code 124 ML/MIN/1.73 = 25779) eGFR NON- AMER. (test 107 ML/MIN/1.73 code = 54898) CALC BUN/CREAT (test code = 25 RATIO 2235) SODIUM (test code = 2231) 142 MEQ/L POTASSIUM (test code = 2228) 4.2 MEQ/L CHLORIDE (test code = 2215) 102 MEQ/L CARBON DIOXIDE (test code = 26 MEQ/L 2205) CALCIUM (test code = 2209) 10.3 MG/DL PROTEIN, TOTAL (test code = 7.3 G/DL 2228) ALBUMIN (test code = 2201) 4.7 G/DL CALC GLOBULIN (test code = 2.6 G/DL 2239) CALC A/G RATIO (test code = 1.8 RATIO 4) BILIRUBIN, TOTAL (test code = 0.2 MG/DL 2206) ALKALINE PHOSPHATASE (test 98 U/L code = 2204) AST (test code = 2218) 12 U/L ALT (test code = 2219) 7 U/L COMPREHENSIVE METABOLIC [id number] 00:00:00 Test Item Value Reference Range Interpretation Comments GLUCOSE (test code = 2217) 125 MG/DL BUN (test code = 2208) 13 MG/DL CREATININE (test code = 2214) 0.53 MG/DL eGFR AMER. (test code 124 ML/MIN/1.73 = 77506) eGFR NON- AMER. (test 107 ML/MIN/1.73 code = 56922) CALC BUN/CREAT (test code = 25 RATIO 2235) SODIUM (test code = 2231) 142 MEQ/L POTASSIUM (test code = 2228) 4.2 MEQ/L CHLORIDE (test code = 2215) 102 MEQ/L CARBON DIOXIDE (test code = 26 MEQ/L 2205) CALCIUM (test code = 2209) 10.3 MG/DL PROTEIN, TOTAL (test code = 7.3 G/DL 2228) ALBUMIN (test code = 2201) 4.7 G/DL CALC GLOBULIN (test code = 2.6 G/DL 0) CALC A/G RATIO (test code = 1.8 RATIO 2233) BILIRUBIN, TOTAL (test code = 0.2 MG/DL 2206) ALKALINE PHOSPHATASE (test 98 U/L code = 2204) AST (test code = 2218) 12 U/L ALT (test code = 2219) 7 U/L [id number] 00:00:00 Test Item Value Reference Range Interpretation Comments TSH, THIRD GENERATION (test code 1.490 UIU/ML = 2821) [id number] 00:00:00 Test Item Value Reference Range Interpretation Comments TSH, THIRD GENERATION (test code 1.490 UIU/ML = 2821) [id number] 00:00:00 Test Item Value Reference Range Interpretation Comments TSH, THIRD GENERATION (test code 1.490 UIU/ML = 2821) CBC W/AUTO [id number] 00:00:00 Test Item Value Reference Range Interpretation Comments WBC (test code = 1001) 5.9 K/UL RBC (test code = 1002) 4.56 M/UL HEMOGLOBIN (test code = 1003) 13.5 G/DL HEMATOCRIT (test code = 1004) 39.3 % MCV (test code = 1005) 86.2 fL MCH (test code = 1006) 29.6 PG MCHC (test code = 1007) 34.4 G/DL RDW (test code = 1038) 13.0 % NEUTROPHILS (test code = 1008) 51.6 % LYMPHOCYTES (test code = 1010) 29.5 % MONOCYTES (test code = 1011) 7.1 % EOSINOPHILS (test code = 1012) 10.8 % BASOPHILS (test code = 1013) 1.0 % PLATELET COUNT (test code = 1015) 323 K/UL CBC W/AUTO [id number] 00:00:00 Test Item Value Reference Range Interpretation Comments WBC (test code = 1001) 5.9 K/UL RBC (test code = 1002) 4.56 M/UL HEMOGLOBIN (test code = 1003) 13.5 G/DL HEMATOCRIT (test code = 1004) 39.3 % MCV (test code = 1005) 86.2 fL MCH (test code = 1006) 29.6 PG MCHC (test code = 1007) 34.4 G/DL RDW (test code = 1038) 13.0 % NEUTROPHILS (test code = 1008) 51.6 % LYMPHOCYTES (test code = 1010) 29.5 % MONOCYTES (test code = 1011) 7.1 % EOSINOPHILS (test code = 1012) 10.8 % BASOPHILS (test code = 1013) 1.0 % PLATELET COUNT (test code = 1015) 323 K/UL CBC W/AUTO [id number] 00:00:00 Test Item Value Reference Range Interpretation Comments WBC (test code = 1001) 5.9 K/UL RBC (test code = 1002) 4.56 M/UL HEMOGLOBIN (test code = 1003) 13.5 G/DL HEMATOCRIT (test code = 1004) 39.3 % MCV (test code = 1005) 86.2 fL MCH (test code = 1006) 29.6 PG MCHC (test code = 1007) 34.4 G/DL RDW (test code = 1038) 13.0 % NEUTROPHILS (test code = 1008) 51.6 % LYMPHOCYTES (test code = 1010) 29.5 % MONOCYTES (test code = 1011) 7.1 % EOSINOPHILS (test code = 1012) 10.8 % BASOPHILS (test code = 1013) 1.0 % PLATELET COUNT (test code = 1015) 323 K/UL HEMOGLOBIN [id number] 00:00:00 Test Item Value Reference Range Interpretation Comments HEMOGLOBIN A1c (test code = 02895) 7.2 % COMPREHENSIVE METABOLIC [id number] 00:00:00 Test Item Value Reference Range Interpretation Comments GLUCOSE (test code = 2217) 131 MG/DL BUN (test code = 2208) 13 MG/DL CREATININE (test code = 2214) 0.57 MG/DL eGFR AMER. (test code 121 ML/MIN/1.73 = 59331) eGFR NON- AMER. (test 104 ML/MIN/1.73 code = 21713) CALC BUN/CREAT (test code = 23 RATIO 2235) SODIUM (test code = 2231) 142 MEQ/L POTASSIUM (test code = 2228) 4.4 MEQ/L CHLORIDE (test code = 2215) 103 MEQ/L CARBON DIOXIDE (test code = 27 MEQ/L 2206) CALCIUM (test code = 2209) 9.9 MG/DL PROTEIN, TOTAL (test code = 6.9 G/DL 222) ALBUMIN (test code = 2201) 4.6 G/DL CALC GLOBULIN (test code = 2.3 G/DL 2240) CALC A/G RATIO (test code = 2.0 RATIO 2234) BILIRUBIN, TOTAL (test code = 0.3 MG/DL 2206) ALKALINE PHOSPHATASE (test 99 U/L code = 2204) AST (test code = 2218) 13 U/L ALT (test code = 2219) 9 U/L COMPREHENSIVE METABOLIC [id number] 00:00:00 Test Item Value Reference Range Interpretation Comments GLUCOSE (test code = 2217) 131 MG/DL BUN (test code = 2208) 13 MG/DL CREATININE (test code = 2214) 0.57 MG/DL eGFR AMER. (test code 121 ML/MIN/1.73 = 62808) eGFR NON- AMER. (test 104 ML/MIN/1.73 code = 52167) CALC BUN/CREAT (test code = 23 RATIO 2235) SODIUM (test code = 2231) 142 MEQ/L POTASSIUM (test code = 2228) 4.4 MEQ/L CHLORIDE (test code = 2215) 103 MEQ/L CARBON DIOXIDE (test code = 27 MEQ/L 2205) CALCIUM (test code = 2209) 9.9 MG/DL PROTEIN, TOTAL (test code = 6.9 G/DL 2228) ALBUMIN (test code = 2201) 4.6 G/DL CALC GLOBULIN (test code = 2.3 G/DL 2240) CALC A/G RATIO (test code = 2.0 RATIO 2234) BILIRUBIN, TOTAL (test code = 0.3 MG/DL 7) ALKALINE PHOSPHATASE (test 99 U/L code = 2204) AST (test code = 2218) 13 U/L ALT (test code = 2219) 9 U/L CBC W/AUTO [id number] 00:00:00 Test Item Value Reference Range Interpretation Comments WBC (test code = 1001) 6.4 K/UL RBC (test code = 1002) 4.59 M/UL HEMOGLOBIN (test code = 1003) 13.6 G/DL HEMATOCRIT (test code = 1004) 39.8 % MCV (test code = 1005) 86.7 fL MCH (test code = 1006) 29.6 PG MCHC (test code = 1007) 34.2 G/DL RDW (test code = 1038) 13.0 % NEUTROPHILS (test code = 1008) 57.6 % LYMPHOCYTES (test code = 1010) 27.5 % MONOCYTES (test code = 1011) 7.2 % EOSINOPHILS (test code = 1012) 6.9 % BASOPHILS (test code = 1013) 0.8 % PLATELET COUNT (test code = 1015) 319 K/UL CBC W/AUTO [id number] 00:00:00 Test Item Value Reference Range Interpretation Comments WBC (test code = 1001) 6.4 K/UL RBC (test code = 1002) 4.59 M/UL HEMOGLOBIN (test code = 1003) 13.6 G/DL HEMATOCRIT (test code = 1004) 39.8 % MCV (test code = 1005) 86.7 fL MCH (test code = 1006) 29.6 PG MCHC (test code = 1007) 34.2 G/DL RDW (test code = 1038) 13.0 % NEUTROPHILS (test code = 1008) 57.6 % LYMPHOCYTES (test code = 1010) 27.5 % MONOCYTES (test code = 1011) 7.2 % EOSINOPHILS (test code = 1012) 6.9 % BASOPHILS (test code = 1013) 0.8 % PLATELET COUNT (test code = 1015) 319 K/UL CBC W/AUTO [id number] 00:00:00 Test Item Value Reference Range Interpretation Comments WBC (test code = 1001) 6.4 K/UL RBC (test code = 1002) 4.59 M/UL HEMOGLOBIN (test code = 1003) 13.6 G/DL HEMATOCRIT (test code = 1004) 39.8 % MCV (test code = 1005) 86.7 fL MCH (test code = 1006) 29.6 PG MCHC (test code = 1007) 34.2 G/DL RDW (test code = 1038) 13.0 % NEUTROPHILS (test code = 1008) 57.6 % LYMPHOCYTES (test code = 1010) 27.5 % MONOCYTES (test code = 1011) 7.2 % EOSINOPHILS (test code = 1012) 6.9 % BASOPHILS (test code = 1013) 0.8 % PLATELET COUNT (test code = 1015) 319 K/UL COMPREHENSIVE METABOLIC [id number] 00:00:00 Test Item Value Reference Range Interpretation Comments GLUCOSE (test code = 2217) 131 MG/DL BUN (test code = 2208) 13 MG/DL CREATININE (test code = 2214) 0.57 MG/DL eGFR AMER. (test code 121 ML/MIN/1.73 = 65985) eGFR NON- AMER. (test 104 ML/MIN/1.73 code = 72596) CALC BUN/CREAT (test code = 23 RATIO 2235) SODIUM (test code = 2231) 142 MEQ/L POTASSIUM (test code = 2228) 4.4 MEQ/L CHLORIDE (test code = 2215) 103 MEQ/L CARBON DIOXIDE (test code = 27 MEQ/L 2205) CALCIUM (test code = 2209) 9.9 MG/DL PROTEIN, TOTAL (test code = 6.9 G/DL 2228) ALBUMIN (test code = 2201) 4.6 G/DL CALC GLOBULIN (test code = 2.3 G/DL 2240) CALC A/G RATIO (test code = 2.0 RATIO 2234) BILIRUBIN, TOTAL (test code = 0.3 MG/DL 2206) ALKALINE PHOSPHATASE (test 99 U/L code = 2204) AST (test code = 2218) 13 U/L ALT (test code = 2219) 9 U/L COMPREHENSIVE METABOLIC [id number] 00:00:00 Test Item Value Reference Range Interpretation Comments GLUCOSE (test code = 2217) 131 MG/DL BUN (test code = 2208) 13 MG/DL CREATININE (test code = 2214) 0.57 MG/DL eGFR AMER. (test code 121 ML/MIN/1.73 = 57048) eGFR NON- AMER. (test 104 ML/MIN/1.73 code = 99543) CALC BUN/CREAT (test code = 23 RATIO 2235) SODIUM (test code = 2231) 142 MEQ/L POTASSIUM (test code = 2228) 4.4 MEQ/L CHLORIDE (test code = 2215) 103 MEQ/L CARBON DIOXIDE (test code = 27 MEQ/L 2205) CALCIUM (test code = 2209) 9.9 MG/DL PROTEIN, TOTAL (test code = 6.9 G/DL 2228) ALBUMIN (test code = 2201) 4.6 G/DL CALC GLOBULIN (test code = 2.3 G/DL 2239) CALC A/G RATIO (test code = 2.0 RATIO 2233) BILIRUBIN, TOTAL (test code = 0.3 MG/DL 2206) ALKALINE PHOSPHATASE (test 99 U/L code = 2204) AST (test code = 2218) 13 U/L ALT (test code = 2219) 9 U/L CBC W/AUTO [id number] 00:00:00 Test Item Value Reference Range Interpretation Comments WBC (test code = 1001) 6.4 K/UL RBC (test code = 1002) 4.59 M/UL HEMOGLOBIN (test code = 1003) 13.6 G/DL HEMATOCRIT (test code = 1004) 39.8 % MCV (test code = 1005) 86.7 fL MCH (test code = 1006) 29.6 PG MCHC (test code = 1007) 34.2 G/DL RDW (test code = 1038) 13.0 % NEUTROPHILS (test code = 1008) 57.6 % LYMPHOCYTES (test code = 1010) 27.5 % MONOCYTES (test code = 1011) 7.2 % EOSINOPHILS (test code = 1012) 6.9 % BASOPHILS (test code = 1013) 0.8 % PLATELET COUNT (test code = 1015) 319 K/UL CBC W/AUTO [id number] 00:00:00 Test Item Value Reference Range Interpretation Comments WBC (test code = 1001) 6.4 K/UL RBC (test code = 1002) 4.59 M/UL HEMOGLOBIN (test code = 1003) 13.6 G/DL HEMATOCRIT (test code = 1004) 39.8 % MCV (test code = 1005) 86.7 fL MCH (test code = 1006) 29.6 PG MCHC (test code = 1007) 34.2 G/DL RDW (test code = 1038) 13.0 % NEUTROPHILS (test code = 1008) 57.6 % LYMPHOCYTES (test code = 1010) 27.5 % MONOCYTES (test code = 1011) 7.2 % EOSINOPHILS (test code = 1012) 6.9 % BASOPHILS (test code = 1013) 0.8 % PLATELET COUNT (test code = 1015) 319 K/UL CBC W/AUTO [id number] 00:00:00 Test Item Value Reference Range Interpretation Comments WBC (test code = 1001) 6.4 K/UL RBC (test code = 1002) 4.59 M/UL HEMOGLOBIN (test code = 1003) 13.6 G/DL HEMATOCRIT (test code = 1004) 39.8 % MCV (test code = 1005) 86.7 fL MCH (test code = 1006) 29.6 PG MCHC (test code = 1007) 34.2 G/DL RDW (test code = 1038) 13.0 % NEUTROPHILS (test code = 1008) 57.6 % LYMPHOCYTES (test code = 1010) 27.5 % MONOCYTES (test code = 1011) 7.2 % EOSINOPHILS (test code = 1012) 6.9 % BASOPHILS (test code = 1013) 0.8 % PLATELET COUNT (test code = 1015) 319 K/UL HEMOGLOBIN [id number] 00:00:00 Test Item Value Reference Range Interpretation Comments HEMOGLOBIN A1c (test code = 52539) 7.3 % HEMOGLOBIN [id number] 00:00:00 Test Item Value Reference Range Interpretation Comments HEMOGLOBIN A1c (test code = 69694) 7.3 % CBC W/AUTO [id number] 00:00:00 Test Item Value Reference Range Interpretation Comments WBC (test code = 1001) 6.4 K/UL RBC (test code = 1002) 4.53 M/UL HEMOGLOBIN (test code = 1003) 13.4 G/DL HEMATOCRIT (test code = 1004) 39.9 % MCV (test code = 1005) 88.1 fL MCH (test code = 1006) 29.6 PG MCHC (test code = 1007) 33.6 G/DL RDW (test code = 1038) 13.0 % NEUTROPHILS (test code = 1008) 55.7 % LYMPHOCYTES (test code = 1010) 28.5 % MONOCYTES (test code = 1011) 6.6 % EOSINOPHILS (test code = 1012) 8.3 % BASOPHILS (test code = 1013) 0.9 % PLATELET COUNT (test code = 1015) 329 K/UL CBC W/AUTO [id number] 00:00:00 Test Item Value Reference Range Interpretation Comments WBC (test code = 1001) 6.4 K/UL RBC (test code = 1002) 4.53 M/UL HEMOGLOBIN (test code = 1003) 13.4 G/DL HEMATOCRIT (test code = 1004) 39.9 % MCV (test code = 1005) 88.1 fL MCH (test code = 1006) 29.6 PG MCHC (test code = 1007) 33.6 G/DL RDW (test code = 1038) 13.0 % NEUTROPHILS (test code = 1008) 55.7 % LYMPHOCYTES (test code = 1010) 28.5 % MONOCYTES (test code = 1011) 6.6 % EOSINOPHILS (test code = 1012) 8.3 % BASOPHILS (test code = 1013) 0.9 % PLATELET COUNT (test code = 1015) 329 K/UL CBC W/AUTO [id number] 00:00:00 Test Item Value Reference Range Interpretation Comments WBC (test code = 1001) 6.4 K/UL RBC (test code = 1002) 4.53 M/UL HEMOGLOBIN (test code = 1003) 13.4 G/DL HEMATOCRIT (test code = 1004) 39.9 % MCV (test code = 1005) 88.1 fL MCH (test code = 1006) 29.6 PG MCHC (test code = 1007) 33.6 G/DL RDW (test code = 1038) 13.0 % NEUTROPHILS (test code = 1008) 55.7 % LYMPHOCYTES (test code = 1010) 28.5 % MONOCYTES (test code = 1011) 6.6 % EOSINOPHILS (test code = 1012) 8.3 % BASOPHILS (test code = 1013) 0.9 % PLATELET COUNT (test code = 1015) 329 K/UL COMPREHENSIVE METABOLIC [id number] 00:00:00 Test Item Value Reference Range Interpretation Comments GLUCOSE (test code = 2217) 134 MG/DL BUN (test code = 2208) 11 MG/DL CREATININE (test code = 2214) 0.65 MG/DL eGFR AMER. (test code 117 ML/MIN/1.73 = 44176) eGFR NON- AMER. (test 101 ML/MIN/1.73 code = 89712) CALC BUN/CREAT (test code = 17 RATIO 2235) SODIUM (test code = 2231) 143 MEQ/L POTASSIUM (test code = 2228) 4.4 MEQ/L CHLORIDE (test code = 2215) 102 MEQ/L CARBON DIOXIDE (test code = 28 MEQ/L 2206) CALCIUM (test code = 2209) 9.5 MG/DL PROTEIN, TOTAL (test code = 6.9 G/DL 222) ALBUMIN (test code = 2201) 4.4 G/DL CALC GLOBULIN (test code = 2.5 G/DL 2240) CALC A/G RATIO (test code = 1.8 RATIO 2234) BILIRUBIN, TOTAL (test code = 0.2 MG/DL 2206) ALKALINE PHOSPHATASE (test 95 U/L code = 2204) AST (test code = 2218) 14 U/L ALT (test code = 2219) 10 U/L COMPREHENSIVE METABOLIC [id number] 00:00:00 Test Item Value Reference Range Interpretation Comments GLUCOSE (test code = 2217) 134 MG/DL BUN (test code = 2208) 11 MG/DL CREATININE (test code = 2214) 0.65 MG/DL eGFR AMER. (test code 117 ML/MIN/1.73 = 88162) eGFR NON- AMER. (test 101 ML/MIN/1.73 code = 88640) CALC BUN/CREAT (test code = 17 RATIO 2235) SODIUM (test code = 2231) 143 MEQ/L POTASSIUM (test code = 2228) 4.4 MEQ/L CHLORIDE (test code = 2215) 102 MEQ/L CARBON DIOXIDE (test code = 28 MEQ/L 2206) CALCIUM (test code = 2209) 9.5 MG/DL PROTEIN, TOTAL (test code = 6.9 G/DL 2229) ALBUMIN (test code = 2201) 4.4 G/DL CALC GLOBULIN (test code = 2.5 G/DL 2240) CALC A/G RATIO (test code = 1.8 RATIO 2234) BILIRUBIN, TOTAL (test code = 0.2 MG/DL 2206) ALKALINE PHOSPHATASE (test 95 U/L code = 2204) AST (test code = 2218) 14 U/L ALT (test code = 2219) 10 U/L LIPID [id number] 00:00:00 Test Item Value Reference Range Interpretation Comments CHOLESTEROL (test code = 2210) 188 MG/DL TRIGLYCERIDES (test code = 2232) 76 MG/DL HDL CHOLESTEROL (test code = 2220) 56 MG/DL CALC LDL CHOL (test code = 2237) 117 MG/DL RISK RATIO LDL/HDL (test code = 2.09 RATIO 2238) LIPID [id number] 00:00:00 Test Item Value Reference Range Interpretation Comments CHOLESTEROL (test code = 2210) 188 MG/DL TRIGLYCERIDES (test code = 2232) 76 MG/DL HDL CHOLESTEROL (test code = 2220) 56 MG/DL CALC LDL CHOL (test code = 2237) 117 MG/DL RISK RATIO LDL/HDL (test code = 2.09 RATIO 2238) HEMOGLOBIN [id number] 00:00:00 Test Item Value Reference Range Interpretation Comments HEMOGLOBIN A1c (test code = 14947) 7.3 % HEMOGLOBIN [id number] 00:00:00 Test Item Value Reference Range Interpretation Comments HEMOGLOBIN A1c (test code = 32574) 7.3 % HEMOGLOBIN [id number] 00:00:00 Test Item Value Reference Range Interpretation Comments HEMOGLOBIN A1c (test code = 02999) 7.3 % CBC W/AUTO [id number] 00:00:00 Test Item Value Reference Range Interpretation Comments WBC (test code = 1001) 6.4 K/UL RBC (test code = 1002) 4.53 M/UL HEMOGLOBIN (test code = 1003) 13.4 G/DL HEMATOCRIT (test code = 1004) 39.9 % MCV (test code = 1005) 88.1 fL MCH (test code = 1006) 29.6 PG MCHC (test code = 1007) 33.6 G/DL RDW (test code = 1038) 13.0 % NEUTROPHILS (test code = 1008) 55.7 % LYMPHOCYTES (test code = 1010) 28.5 % MONOCYTES (test code = 1011) 6.6 % EOSINOPHILS (test code = 1012) 8.3 % BASOPHILS (test code = 1013) 0.9 % PLATELET COUNT (test code = 1015) 329 K/UL CBC W/AUTO [id number] 00:00:00 Test Item Value Reference Range Interpretation Comments WBC (test code = 1001) 6.4 K/UL RBC (test code = 1002) 4.53 M/UL HEMOGLOBIN (test code = 1003) 13.4 G/DL HEMATOCRIT (test code = 1004) 39.9 % MCV (test code = 1005) 88.1 fL MCH (test code = 1006) 29.6 PG MCHC (test code = 1007) 33.6 G/DL RDW (test code = 1038) 13.0 % NEUTROPHILS (test code = 1008) 55.7 % LYMPHOCYTES (test code = 1010) 28.5 % MONOCYTES (test code = 1011) 6.6 % EOSINOPHILS (test code = 1012) 8.3 % BASOPHILS (test code = 1013) 0.9 % PLATELET COUNT (test code = 1015) 329 K/UL CBC W/AUTO [id number] 00:00:00 Test Item Value Reference Range Interpretation Comments WBC (test code = 1001) 6.4 K/UL RBC (test code = 1002) 4.53 M/UL HEMOGLOBIN (test code = 1003) 13.4 G/DL HEMATOCRIT (test code = 1004) 39.9 % MCV (test code = 1005) 88.1 fL MCH (test code = 1006) 29.6 PG MCHC (test code = 1007) 33.6 G/DL RDW (test code = 1038) 13.0 % NEUTROPHILS (test code = 1008) 55.7 % LYMPHOCYTES (test code = 1010) 28.5 % MONOCYTES (test code = 1011) 6.6 % EOSINOPHILS (test code = 1012) 8.3 % BASOPHILS (test code = 1013) 0.9 % PLATELET COUNT (test code = 1015) 329 K/UL COMPREHENSIVE METABOLIC [id number] 00:00:00 Test Item Value Reference Range Interpretation Comments GLUCOSE (test code = 2217) 134 MG/DL BUN (test code = 2208) 11 MG/DL CREATININE (test code = 2214) 0.65 MG/DL eGFR AMER. (test code 117 ML/MIN/1.73 = 29501) eGFR NON- AMER. (test 101 ML/MIN/1.73 code = 14917) CALC BUN/CREAT (test code = 17 RATIO 2235) SODIUM (test code = 2231) 143 MEQ/L POTASSIUM (test code = 2228) 4.4 MEQ/L CHLORIDE (test code = 2215) 102 MEQ/L CARBON DIOXIDE (test code = 28 MEQ/L 220) CALCIUM (test code = 2209) 9.5 MG/DL PROTEIN, TOTAL (test code = 6.9 G/DL 222) ALBUMIN (test code = 2201) 4.4 G/DL CALC GLOBULIN (test code = 2.5 G/DL 2240) CALC A/G RATIO (test code = 1.8 RATIO 2234) BILIRUBIN, TOTAL (test code = 0.2 MG/DL 2206) ALKALINE PHOSPHATASE (test 95 U/L code = 2204) AST (test code = 2218) 14 U/L ALT (test code = 2219) 10 U/L COMPREHENSIVE METABOLIC [id number] 00:00:00 Test Item Value Reference Range Interpretation Comments GLUCOSE (test code = 2217) 134 MG/DL BUN (test code = 2208) 11 MG/DL CREATININE (test code = 2214) 0.65 MG/DL eGFR AMER. (test code 117 ML/MIN/1.73 = 46963) eGFR NON- AMER. (test 101 ML/MIN/1.73 code = 16437) CALC BUN/CREAT (test code = 17 RATIO 2235) SODIUM (test code = 2231) 143 MEQ/L POTASSIUM (test code = 2228) 4.4 MEQ/L CHLORIDE (test code = 2215) 102 MEQ/L CARBON DIOXIDE (test code = 28 MEQ/L 2205) CALCIUM (test code = 2209) 9.5 MG/DL PROTEIN, TOTAL (test code = 6.9 G/DL 9) ALBUMIN (test code = 2201) 4.4 G/DL CALC GLOBULIN (test code = 2.5 G/DL 2240) CALC A/G RATIO (test code = 1.8 RATIO 2234) BILIRUBIN, TOTAL (test code = 0.2 MG/DL 7) ALKALINE PHOSPHATASE (test 95 U/L code = 2204) AST (test code = 2218) 14 U/L ALT (test code = 2219) 10 U/L LIPID [id number] 00:00:00 Test Item Value Reference Range Interpretation Comments CHOLESTEROL (test code = 2210) 188 MG/DL TRIGLYCERIDES (test code = 2232) 76 MG/DL HDL CHOLESTEROL (test code = 2220) 56 MG/DL CALC LDL CHOL (test code = 2237) 117 MG/DL RISK RATIO LDL/HDL (test code = 2.09 RATIO 2238) LIPID [id number] 00:00:00 Test Item Value Reference Range Interpretation Comments CHOLESTEROL (test code = 2210) 188 MG/DL TRIGLYCERIDES (test code = 2232) 76 MG/DL HDL CHOLESTEROL (test code = 2220) 56 MG/DL CALC LDL CHOL (test code = 2237) 117 MG/DL RISK RATIO LDL/HDL (test code = 2.09 RATIO 2238) HEMOGLOBIN [id number] 00:00:00 Test Item Value Reference Range Interpretation Comments HEMOGLOBIN A1c (test code = 01386) 7.3 % HEMOGLOBIN [id number] 00:00:00 Test Item Value Reference Range Interpretation Comments HEMOGLOBIN A1c (test code = 45211) 7.3 % CBC W/AUTO [id number] 00:00:00 Test Item Value Reference Range Interpretation Comments WBC (test code = 1001) 7.3 K/UL RBC (test code = 1002) 4.92 M/UL HEMOGLOBIN (test code = 1003) 14.8 G/DL HEMATOCRIT (test code = 1004) 42.0 % MCV (test code = 1005) 85.4 fL MCH (test code = 1006) 30.1 PG MCHC (test code = 1007) 35.2 G/DL RDW (test code = 1038) 12.8 % NEUTROPHILS (test code = 1008) 53.9 % LYMPHOCYTES (test code = 1010) 28.6 % MONOCYTES (test code = 1011) 6.0 % EOSINOPHILS (test code = 1012) 10.7 % BASOPHILS (test code = 1013) 0.8 % PLATELET COUNT (test code = 1015) 307 K/UL CBC W/AUTO [id number] 00:00:00 Test Item Value Reference Range Interpretation Comments WBC (test code = 1001) 7.3 K/UL RBC (test code = 1002) 4.92 M/UL HEMOGLOBIN (test code = 1003) 14.8 G/DL HEMATOCRIT (test code = 1004) 42.0 % MCV (test code = 1005) 85.4 fL MCH (test code = 1006) 30.1 PG MCHC (test code = 1007) 35.2 G/DL RDW (test code = 1038) 12.8 % NEUTROPHILS (test code = 1008) 53.9 % LYMPHOCYTES (test code = 1010) 28.6 % MONOCYTES (test code = 1011) 6.0 % EOSINOPHILS (test code = 1012) 10.7 % BASOPHILS (test code = 1013) 0.8 % PLATELET COUNT (test code = 1015) 307 K/UL CBC W/AUTO [id number] 00:00:00 Test Item Value Reference Range Interpretation Comments WBC (test code = 1001) 7.3 K/UL RBC (test code = 1002) 4.92 M/UL HEMOGLOBIN (test code = 1003) 14.8 G/DL HEMATOCRIT (test code = 1004) 42.0 % MCV (test code = 1005) 85.4 fL MCH (test code = 1006) 30.1 PG MCHC (test code = 1007) 35.2 G/DL RDW (test code = 1038) 12.8 % NEUTROPHILS (test code = 1008) 53.9 % LYMPHOCYTES (test code = 1010) 28.6 % MONOCYTES (test code = 1011) 6.0 % EOSINOPHILS (test code = 1012) 10.7 % BASOPHILS (test code = 1013) 0.8 % PLATELET COUNT (test code = 1015) 307 K/UL COMPREHENSIVE METABOLIC [id number] 00:00:00 Test Item Value Reference Range Interpretation Comments GLUCOSE (test code = 2217) 117 MG/DL BUN (test code = 2208) 13 MG/DL CREATININE (test code = 2214) 0.52 MG/DL eGFR AMER. (test code 126 ML/MIN/1.73 = 85413) eGFR NON- AMER. (test 108 ML/MIN/1.73 code = 92996) CALC BUN/CREAT (test code = 25 RATIO 2235) SODIUM (test code = 2231) 141 MEQ/L POTASSIUM (test code = 2228) 4.3 MEQ/L CHLORIDE (test code = 2215) 99 MEQ/L CARBON DIOXIDE (test code = 26 MEQ/L 2205) CALCIUM (test code = 2209) 10.1 MG/DL PROTEIN, TOTAL (test code = 7.9 G/DL 2228) ALBUMIN (test code = 2201) 5.1 G/DL CALC GLOBULIN (test code = 2.8 G/DL 2240) CALC A/G RATIO (test code = 1.8 RATIO 2234) BILIRUBIN, TOTAL (test code = 0.3 MG/DL 2206) ALKALINE PHOSPHATASE (test 104 U/L code = 2204) AST (test code = 2218) 17 U/L ALT (test code = 2219) 11 U/L COMPREHENSIVE METABOLIC [id number] 00:00:00 Test Item Value Reference Range Interpretation Comments GLUCOSE (test code = 2217) 117 MG/DL BUN (test code = 2208) 13 MG/DL CREATININE (test code = 2214) 0.52 MG/DL eGFR AMER. (test code 126 ML/MIN/1.73 = 20961) eGFR NON- AMER. (test 108 ML/MIN/1.73 code = 03860) CALC BUN/CREAT (test code = 25 RATIO 2235) SODIUM (test code = 2231) 141 MEQ/L POTASSIUM (test code = 2228) 4.3 MEQ/L CHLORIDE (test code = 2215) 99 MEQ/L CARBON DIOXIDE (test code = 26 MEQ/L 2205) CALCIUM (test code = 2209) 10.1 MG/DL PROTEIN, TOTAL (test code = 7.9 G/DL 2228) ALBUMIN (test code = 2201) 5.1 G/DL CALC GLOBULIN (test code = 2.8 G/DL 2240) CALC A/G RATIO (test code = 1.8 RATIO 2234) BILIRUBIN, TOTAL (test code = 0.3 MG/DL 2206) ALKALINE PHOSPHATASE (test 104 U/L code = 2204) AST (test code = 2218) 17 U/L ALT (test code = 2219) 11 U/L [id number] 00:00:00 Test Item Value Reference Range Interpretation Comments TSH, THIRD GENERATION (test code 1.280 UIU/ML = 2821) [id number] 00:00:00 Test Item Value Reference Range Interpretation Comments TSH, THIRD GENERATION (test code 1.280 UIU/ML = 2821) [id number] 00:00:00 Test Item Value Reference Range Interpretation Comments TSH, THIRD GENERATION (test code 1.280 UIU/ML = 2821) HEMOGLOBIN [id number] 00:00:00 Test Item Value Reference Range Interpretation Comments HEMOGLOBIN A1c (test code = 46268) 7.3 % HEMOGLOBIN [id number] 00:00:00 Test Item Value Reference Range Interpretation Comments HEMOGLOBIN A1c (test code = 37292) 7.3 % HEMOGLOBIN [id number] 00:00:00 Test Item Value Reference Range Interpretation Comments HEMOGLOBIN A1c (test code = 82842) 7.3 % CBC W/AUTO [id number] 00:00:00 Test Item Value Reference Range Interpretation Comments WBC (test code = 1001) 7.3 K/UL RBC (test code = 1002) 4.92 M/UL HEMOGLOBIN (test code = 1003) 14.8 G/DL HEMATOCRIT (test code = 1004) 42.0 % MCV (test code = 1005) 85.4 fL MCH (test code = 1006) 30.1 PG MCHC (test code = 1007) 35.2 G/DL RDW (test code = 1038) 12.8 % NEUTROPHILS (test code = 1008) 53.9 % LYMPHOCYTES (test code = 1010) 28.6 % MONOCYTES (test code = 1011) 6.0 % EOSINOPHILS (test code = 1012) 10.7 % BASOPHILS (test code = 1013) 0.8 % PLATELET COUNT (test code = 1015) 307 K/UL CBC W/AUTO [id number] 00:00:00 Test Item Value Reference Range Interpretation Comments WBC (test code = 1001) 7.3 K/UL RBC (test code = 1002) 4.92 M/UL HEMOGLOBIN (test code = 1003) 14.8 G/DL HEMATOCRIT (test code = 1004) 42.0 % MCV (test code = 1005) 85.4 fL MCH (test code = 1006) 30.1 PG MCHC (test code = 1007) 35.2 G/DL RDW (test code = 1038) 12.8 % NEUTROPHILS (test code = 1008) 53.9 % LYMPHOCYTES (test code = 1010) 28.6 % MONOCYTES (test code = 1011) 6.0 % EOSINOPHILS (test code = 1012) 10.7 % BASOPHILS (test code = 1013) 0.8 % PLATELET COUNT (test code = 1015) 307 K/UL CBC W/AUTO [id number] 00:00:00 Test Item Value Reference Range Interpretation Comments WBC (test code = 1001) 7.3 K/UL RBC (test code = 1002) 4.92 M/UL HEMOGLOBIN (test code = 1003) 14.8 G/DL HEMATOCRIT (test code = 1004) 42.0 % MCV (test code = 1005) 85.4 fL MCH (test code = 1006) 30.1 PG MCHC (test code = 1007) 35.2 G/DL RDW (test code = 1038) 12.8 % NEUTROPHILS (test code = 1008) 53.9 % LYMPHOCYTES (test code = 1010) 28.6 % MONOCYTES (test code = 1011) 6.0 % EOSINOPHILS (test code = 1012) 10.7 % BASOPHILS (test code = 1013) 0.8 % PLATELET COUNT (test code = 1015) 307 K/UL COMPREHENSIVE METABOLIC [id number] 00:00:00 Test Item Value Reference Range Interpretation Comments GLUCOSE (test code = 2217) 117 MG/DL BUN (test code = 2208) 13 MG/DL CREATININE (test code = 2214) 0.52 MG/DL eGFR AMER. (test code 126 ML/MIN/1.73 = 15533) eGFR NON- AMER. (test 108 ML/MIN/1.73 code = 83888) CALC BUN/CREAT (test code = 25 RATIO 2235) SODIUM (test code = 2231) 141 MEQ/L POTASSIUM (test code = 2228) 4.3 MEQ/L CHLORIDE (test code = 2215) 99 MEQ/L CARBON DIOXIDE (test code = 26 MEQ/L 2206) CALCIUM (test code = 2209) 10.1 MG/DL PROTEIN, TOTAL (test code = 7.9 G/DL 2228) ALBUMIN (test code = 2201) 5.1 G/DL CALC GLOBULIN (test code = 2.8 G/DL 2240) CALC A/G RATIO (test code = 1.8 RATIO 2234) BILIRUBIN, TOTAL (test code = 0.3 MG/DL 2207) ALKALINE PHOSPHATASE (test 104 U/L code = 2204) AST (test code = 2218) 17 U/L ALT (test code = 2219) 11 U/L COMPREHENSIVE METABOLIC [id number] 00:00:00 Test Item Value Reference Range Interpretation Comments GLUCOSE (test code = 2217) 117 MG/DL BUN (test code = 2208) 13 MG/DL CREATININE (test code = 2214) 0.52 MG/DL eGFR AMER. (test code 126 ML/MIN/1.73 = 82811) eGFR NON- AMER. (test 108 ML/MIN/1.73 code = 09560) CALC BUN/CREAT (test code = 25 RATIO 2235) SODIUM (test code = 2231) 141 MEQ/L POTASSIUM (test code = 2228) 4.3 MEQ/L CHLORIDE (test code = 2215) 99 MEQ/L CARBON DIOXIDE (test code = 26 MEQ/L 2205) CALCIUM (test code = 2209) 10.1 MG/DL PROTEIN, TOTAL (test code = 7.9 G/DL 2228) ALBUMIN (test code = 2201) 5.1 G/DL CALC GLOBULIN (test code = 2.8 G/DL 2239) CALC A/G RATIO (test code = 1.8 RATIO 2233) BILIRUBIN, TOTAL (test code = 0.3 MG/DL 2206) ALKALINE PHOSPHATASE (test 104 U/L code = 2204) AST (test code = 2218) 17 U/L ALT (test code = 2219) 11 U/L [id number] 00:00:00 Test Item Value Reference Range Interpretation Comments TSH, THIRD GENERATION (test code 1.280 UIU/ML = 2821) [id number] 00:00:00 Test Item Value Reference Range Interpretation Comments TSH, THIRD GENERATION (test code 1.280 UIU/ML = 2821) [id number] 00:00:00 Test Item Value Reference Range Interpretation Comments TSH, THIRD GENERATION (test code 1.280 UIU/ML = 2821) HEMOGLOBIN [id number] 00:00:00 Test Item Value Reference Range Interpretation Comments HEMOGLOBIN A1c (test code = 73959) 7.3 % HEMOGLOBIN [id number] 00:00:00 Test Item Value Reference Range Interpretation Comments HEMOGLOBIN A1c (test code = 74267) 7.3 % CBC W/AUTO [id number] 00:00:00 Test Item Value Reference Range Interpretation Comments WBC (test code = 1001) 7.8 K/UL RBC (test code = 1002) 4.76 M/UL HEMOGLOBIN (test code = 1003) 14.1 G/DL HEMATOCRIT (test code = 1004) 42.6 % MCV (test code = 1005) 89.5 fL MCH (test code = 1006) 29.6 PG MCHC (test code = 1007) 33.1 G/DL RDW (test code = 1038) 13.4 % NEUTROPHILS (test code = 1008) 59.7 % LYMPHOCYTES (test code = 1010) 26.4 % MONOCYTES (test code = 1011) 7.7 % EOSINOPHILS (test code = 1012) 5.7 % BASOPHILS (test code = 1013) 0.5 % PLATELET COUNT (test code = 1015) 297 K/UL COMPREHENSIVE METABOLIC [id number] 00:00:00 Test Item Value Reference Range Interpretation Comments GLUCOSE (test code = 2217) 118 MG/DL BUN (test code = 2208) 12 MG/DL CREATININE (test code = 2214) 0.55 MG/DL eGFR AMER. (test code 124 ML/MIN/1.73 = 56155) eGFR NON- AMER. (test 107 ML/MIN/1.73 code = 92769) CALC BUN/CREAT (test code = 22 RATIO 2235) SODIUM (test code = 2231) 140 MEQ/L POTASSIUM (test code = 2228) 4.2 MEQ/L CHLORIDE (test code = 2215) 100 MEQ/L CARBON DIOXIDE (test code = 27 MEQ/L 2206) CALCIUM (test code = 2209) 10.2 MG/DL PROTEIN, TOTAL (test code = 7.1 G/DL 2228) ALBUMIN (test code = 2201) 4.4 G/DL CALC GLOBULIN (test code = 2.7 G/DL 2240) CALC A/G RATIO (test code = 1.6 RATIO 2234) BILIRUBIN, TOTAL (test code = 0.2 MG/DL 2206) ALKALINE PHOSPHATASE (test 94 U/L code = 2204) AST (test code = 2218) 15 U/L ALT (test code = 2219) 11 U/L COMPREHENSIVE METABOLIC [id number] 00:00:00 Test Item Value Reference Range Interpretation Comments GLUCOSE (test code = 2217) 118 MG/DL BUN (test code = 2208) 12 MG/DL CREATININE (test code = 2214) 0.55 MG/DL eGFR AMER. (test code 124 ML/MIN/1.73 = 72054) eGFR NON- AMER. (test 107 ML/MIN/1.73 code = 83600) CALC BUN/CREAT (test code = 22 RATIO 2235) SODIUM (test code = 2231) 140 MEQ/L POTASSIUM (test code = 2228) 4.2 MEQ/L CHLORIDE (test code = 2215) 100 MEQ/L CARBON DIOXIDE (test code = 27 MEQ/L 2205) CALCIUM (test code = 2209) 10.2 MG/DL PROTEIN, TOTAL (test code = 7.1 G/DL 2228) ALBUMIN (test code = 2201) 4.4 G/DL CALC GLOBULIN (test code = 2.7 G/DL 2239) CALC A/G RATIO (test code = 1.6 RATIO 2234) BILIRUBIN, TOTAL (test code = 0.2 MG/DL 2206) ALKALINE PHOSPHATASE (test 94 U/L code = 2204) AST (test code = 2218) 15 U/L ALT (test code = 2219) 11 U/L LIPID [id number] 00:00:00 Test Item Value Reference Range Interpretation Comments CHOLESTEROL (test code = 2210) 240 MG/DL TRIGLYCERIDES (test code = 2232) 259 MG/DL HDL CHOLESTEROL (test code = 2220) 50 MG/DL CALC LDL CHOL (test code = 2237) 138 MG/DL RISK RATIO LDL/HDL (test code = 2.76 RATIO 2238) LIPID [id number] 00:00:00 Test Item Value Reference Range Interpretation Comments CHOLESTEROL (test code = 2210) 240 MG/DL TRIGLYCERIDES (test code = 2232) 259 MG/DL HDL CHOLESTEROL (test code = 2220) 50 MG/DL CALC LDL CHOL (test code = 2237) 138 MG/DL RISK RATIO LDL/HDL (test code = 2.76 RATIO 2238) [id number] 00:00:00 Test Item Value Reference Range Interpretation Comments TSH (test code = 2821) 2.050 UIU/ML [id number] 00:00:00 Test Item Value Reference Range Interpretation Comments TSH (test code = 2821) 2.050 UIU/ML [id number] 00:00:00 Test Item Value Reference Range Interpretation Comments TSH (test code = 2821) 2.050 UIU/ML MICROALBUMIN/CREATININE, RANDOM AND [id number] 00:00:00 Test Item Value Reference Range Interpretation Comments CREATININE, URINE, CONC. (test 38.8 MG/DL code = 2072) MICROALBUMIN, RANDOM (test code = <0.2 MG/DL 44787) CALC MICROALB/CREAT RND (test code <5 MG/G = 87117) MICROALBUMIN/CREATININE, RANDOM AND [id number] 00:00:00 Test Item Value Reference Range Interpretation Comments CREATININE, URINE, CONC. (test 38.8 MG/DL code = 2072) MICROALBUMIN, RANDOM (test code = <0.2 MG/DL 01399) CALC MICROALB/CREAT RND (test code <5 MG/G = 13071) HEMOGLOBIN [id number] 00:00:00 Test Item Value Reference Range Interpretation Comments HEMOGLOBIN A1c (test code = 21365) 6.9 % HEMOGLOBIN [id number] 00:00:00 Test Item Value Reference Range Interpretation Comments HEMOGLOBIN A1c (test code = 12598) 6.9 % HEMOGLOBIN [id number] 00:00:00 Test Item Value Reference Range Interpretation Comments HEMOGLOBIN A1c (test code = 44508) 6.9 % CBC W/AUTO [id number] 00:00:00 Test Item Value Reference Range Interpretation Comments WBC (test code = 1001) 7.8 K/UL RBC (test code = 1002) 4.76 M/UL HEMOGLOBIN (test code = 1003) 14.1 G/DL HEMATOCRIT (test code = 1004) 42.6 % MCV (test code = 1005) 89.5 fL MCH (test code = 1006) 29.6 PG MCHC (test code = 1007) 33.1 G/DL RDW (test code = 1038) 13.4 % NEUTROPHILS (test code = 1008) 59.7 % LYMPHOCYTES (test code = 1010) 26.4 % MONOCYTES (test code = 1011) 7.7 % EOSINOPHILS (test code = 1012) 5.7 % BASOPHILS (test code = 1013) 0.5 % PLATELET COUNT (test code = 1015) 297 K/UL CBC W/AUTO [id number] 00:00:00 Test Item Value Reference Range Interpretation Comments WBC (test code = 1001) 7.8 K/UL RBC (test code = 1002) 4.76 M/UL HEMOGLOBIN (test code = 1003) 14.1 G/DL HEMATOCRIT (test code = 1004) 42.6 % MCV (test code = 1005) 89.5 fL MCH (test code = 1006) 29.6 PG MCHC (test code = 1007) 33.1 G/DL RDW (test code = 1038) 13.4 % NEUTROPHILS (test code = 1008) 59.7 % LYMPHOCYTES (test code = 1010) 26.4 % MONOCYTES (test code = 1011) 7.7 % EOSINOPHILS (test code = 1012) 5.7 % BASOPHILS (test code = 1013) 0.5 % PLATELET COUNT (test code = 1015) 297 K/UL CBC W/AUTO [id number] 00:00:00 Test Item Value Reference Range Interpretation Comments WBC (test code = 1001) 7.8 K/UL RBC (test code = 1002) 4.76 M/UL HEMOGLOBIN (test code = 1003) 14.1 G/DL HEMATOCRIT (test code = 1004) 42.6 % MCV (test code = 1005) 89.5 fL MCH (test code = 1006) 29.6 PG MCHC (test code = 1007) 33.1 G/DL RDW (test code = 1038) 13.4 % NEUTROPHILS (test code = 1008) 59.7 % LYMPHOCYTES (test code = 1010) 26.4 % MONOCYTES (test code = 1011) 7.7 % EOSINOPHILS (test code = 1012) 5.7 % BASOPHILS (test code = 1013) 0.5 % PLATELET COUNT (test code = 1015) 297 K/UL COMPREHENSIVE METABOLIC [id number] 00:00:00 Test Item Value Reference Range Interpretation Comments GLUCOSE (test code = 2217) 118 MG/DL BUN (test code = 2208) 12 MG/DL CREATININE (test code = 2214) 0.55 MG/DL eGFR AMER. (test code 124 ML/MIN/1.73 = 47900) eGFR NON- AMER. (test 107 ML/MIN/1.73 code = 80440) CALC BUN/CREAT (test code = 22 RATIO 2235) SODIUM (test code = 2231) 140 MEQ/L POTASSIUM (test code = 2228) 4.2 MEQ/L CHLORIDE (test code = 2215) 100 MEQ/L CARBON DIOXIDE (test code = 27 MEQ/L 2206) CALCIUM (test code = 2209) 10.2 MG/DL PROTEIN, TOTAL (test code = 7.1 G/DL 2229) ALBUMIN (test code = 2201) 4.4 G/DL CALC GLOBULIN (test code = 2.7 G/DL 2240) CALC A/G RATIO (test code = 1.6 RATIO 2234) BILIRUBIN, TOTAL (test code = 0.2 MG/DL 2206) ALKALINE PHOSPHATASE (test 94 U/L code = 2204) AST (test code = 2218) 15 U/L ALT (test code = 2219) 11 U/L COMPREHENSIVE METABOLIC [id number] 00:00:00 Test Item Value Reference Range Interpretation Comments GLUCOSE (test code = 2217) 118 MG/DL BUN (test code = 2208) 12 MG/DL CREATININE (test code = 2214) 0.55 MG/DL eGFR AMER. (test code 124 ML/MIN/1.73 = 94320) eGFR NON- AMER. (test 107 ML/MIN/1.73 code = 54712) CALC BUN/CREAT (test code = 22 RATIO 2235) SODIUM (test code = 2231) 140 MEQ/L POTASSIUM (test code = 2228) 4.2 MEQ/L CHLORIDE (test code = 2215) 100 MEQ/L CARBON DIOXIDE (test code = 27 MEQ/L 2206) CALCIUM (test code = 2209) 10.2 MG/DL PROTEIN, TOTAL (test code = 7.1 G/DL 2229) ALBUMIN (test code = 2201) 4.4 G/DL CALC GLOBULIN (test code = 2.7 G/DL 2240) CALC A/G RATIO (test code = 1.6 RATIO 2234) BILIRUBIN, TOTAL (test code = 0.2 MG/DL 2207) ALKALINE PHOSPHATASE (test 94 U/L code = 2204) AST (test code = 2218) 15 U/L ALT (test code = 2219) 11 U/L LIPID [id number] 00:00:00 Test Item Value Reference Range Interpretation Comments CHOLESTEROL (test code = 2210) 240 MG/DL TRIGLYCERIDES (test code = 2232) 259 MG/DL HDL CHOLESTEROL (test code = 2220) 50 MG/DL CALC LDL CHOL (test code = 2237) 138 MG/DL RISK RATIO LDL/HDL (test code = 2.76 RATIO 2238) LIPID [id number] 00:00:00 Test Item Value Reference Range Interpretation Comments CHOLESTEROL (test code = 2210) 240 MG/DL TRIGLYCERIDES (test code = 2232) 259 MG/DL HDL CHOLESTEROL (test code = 2220) 50 MG/DL CALC LDL CHOL (test code = 2237) 138 MG/DL RISK RATIO LDL/HDL (test code = 2.76 RATIO 2238) [id number] 00:00:00 Test Item Value Reference Range Interpretation Comments TSH (test code = 2821) 2.050 UIU/ML [id number] 00:00:00 Test Item Value Reference Range Interpretation Comments TSH (test code = 2821) 2.050 UIU/ML [id number] 00:00:00 Test Item Value Reference Range Interpretation Comments TSH (test code = 2821) 2.050 UIU/ML MICROALBUMIN/CREATININE, RANDOM AND [id number] 00:00:00 Test Item Value Reference Range Interpretation Comments CREATININE, URINE, CONC. (test 38.8 MG/DL code = 2072) MICROALBUMIN, RANDOM (test code = <0.2 MG/DL 43912) CALC MICROALB/CREAT RND (test code <5 MG/G = 66905) MICROALBUMIN/CREATININE, RANDOM AND [id number] 00:00:00 Test Item Value Reference Range Interpretation Comments CREATININE, URINE, CONC. (test 38.8 MG/DL code = 2072) MICROALBUMIN, RANDOM (test code = <0.2 MG/DL 09674) CALC MICROALB/CREAT RND (test code <5 MG/G = 41461) HEMOGLOBIN [id number] 00:00:00 Test Item Value Reference Range Interpretation Comments HEMOGLOBIN A1c (test code = 76231) 6.9 % HEMOGLOBIN [id number] 00:00:00 Test Item Value Reference Range Interpretation Comments HEMOGLOBIN A1c (test code = 72711) 6.9 % HEMOGLOBIN [id number] 00:00:00 Test Item Value Reference Range Interpretation Comments HEMOGLOBIN A1c (test code = 75104) 6.9 % CBC W/AUTO [id number] 00:00:00 Test Item Value Reference Range Interpretation Comments WBC (test code = 1001) 7.8 K/UL RBC (test code = 1002) 4.76 M/UL HEMOGLOBIN (test code = 1003) 14.1 G/DL HEMATOCRIT (test code = 1004) 42.6 % MCV (test code = 1005) 89.5 fL MCH (test code = 1006) 29.6 PG MCHC (test code = 1007) 33.1 G/DL RDW (test code = 1038) 13.4 % NEUTROPHILS (test code = 1008) 59.7 % LYMPHOCYTES (test code = 1010) 26.4 % MONOCYTES (test code = 1011) 7.7 % EOSINOPHILS (test code = 1012) 5.7 % BASOPHILS (test code = 1013) 0.5 % PLATELET COUNT (test code = 1015) 297 K/UL CBC W/AUTO [id number] 00:00:00 Test Item Value Reference Range Interpretation Comments WBC (test code = 1001) 7.8 K/UL RBC (test code = 1002) 4.76 M/UL HEMOGLOBIN (test code = 1003) 14.1 G/DL HEMATOCRIT (test code = 1004) 42.6 % MCV (test code = 1005) 89.5 fL MCH (test code = 1006) 29.6 PG MCHC (test code = 1007) 33.1 G/DL RDW (test code = 1038) 13.4 % NEUTROPHILS (test code = 1008) 59.7 % LYMPHOCYTES (test code = 1010) 26.4 % MONOCYTES (test code = 1011) 7.7 % EOSINOPHILS (test code = 1012) 5.7 % BASOPHILS (test code = 1013) 0.5 % PLATELET COUNT (test code = 1015) 297 K/UL LIPID [id number] 00:00:00 Test Item Value Reference Range Interpretation Comments CHOLESTEROL (test code = 2210) 254 MG/DL TRIGLYCERIDES (test code = 2232) 141 MG/DL HDL CHOLESTEROL (test code = 2220) 71 MG/DL CALC LDL CHOL (test code = 2237) 155 MG/DL RISK RATIO LDL/HDL (test code = 2.18 RATIO 2238) LIPID [id number] 00:00:00 Test Item Value Reference Range Interpretation Comments CHOLESTEROL (test code = 2210) 254 MG/DL TRIGLYCERIDES (test code = 2232) 141 MG/DL HDL CHOLESTEROL (test code = 2220) 71 MG/DL CALC LDL CHOL (test code = 2237) 155 MG/DL RISK RATIO LDL/HDL (test code = 2.18 RATIO 2238) CBC W/AUTO [id number] 00:00:00 Test Item Value Reference Range Interpretation Comments WBC (test code = 1001) 5.4 K/UL RBC (test code = 1002) 5.07 M/UL HEMOGLOBIN (test code = 1003) 15.4 G/DL HEMATOCRIT (test code = 1004) 45.8 % MCV (test code = 1005) 90.3 fL MCH (test code = 1006) 30.4 PG MCHC (test code = 1007) 33.6 G/DL RDW (test code = 1038) 12.9 % NEUTROPHILS (test code = 1008) 51.7 % LYMPHOCYTES (test code = 1010) 31.8 % MONOCYTES (test code = 1011) 6.3 % EOSINOPHILS (test code = 1012) 9.6 % BASOPHILS (test code = 1013) 0.6 % PLATELET COUNT (test code = 1015) 308 K/UL CBC W/AUTO [id number] 00:00:00 Test Item Value Reference Range Interpretation Comments WBC (test code = 1001) 5.4 K/UL RBC (test code = 1002) 5.07 M/UL HEMOGLOBIN (test code = 1003) 15.4 G/DL HEMATOCRIT (test code = 1004) 45.8 % MCV (test code = 1005) 90.3 fL MCH (test code = 1006) 30.4 PG MCHC (test code = 1007) 33.6 G/DL RDW (test code = 1038) 12.9 % NEUTROPHILS (test code = 1008) 51.7 % LYMPHOCYTES (test code = 1010) 31.8 % MONOCYTES (test code = 1011) 6.3 % EOSINOPHILS (test code = 1012) 9.6 % BASOPHILS (test code = 1013) 0.6 % PLATELET COUNT (test code = 1015) 308 K/UL CBC W/AUTO [id number] 00:00:00 Test Item Value Reference Range Interpretation Comments WBC (test code = 1001) 5.4 K/UL RBC (test code = 1002) 5.07 M/UL HEMOGLOBIN (test code = 1003) 15.4 G/DL HEMATOCRIT (test code = 1004) 45.8 % MCV (test code = 1005) 90.3 fL MCH (test code = 1006) 30.4 PG MCHC (test code = 1007) 33.6 G/DL RDW (test code = 1038) 12.9 % NEUTROPHILS (test code = 1008) 51.7 % LYMPHOCYTES (test code = 1010) 31.8 % MONOCYTES (test code = 1011) 6.3 % EOSINOPHILS (test code = 1012) 9.6 % BASOPHILS (test code = 1013) 0.6 % PLATELET COUNT (test code = 1015) 308 K/UL HEMOGLOBIN [id number] 00:00:00 Test Item Value Reference Range Interpretation Comments HEMOGLOBIN A1c (test code = 31489) 6.4 % HEMOGLOBIN [id number] 00:00:00 Test Item Value Reference Range Interpretation Comments HEMOGLOBIN A1c (test code = 97220) 6.4 % HEMOGLOBIN [id number] 00:00:00 Test Item Value Reference Range Interpretation Comments HEMOGLOBIN A1c (test code = 47409) 6.4 % [id number] 00:00:00 Test Item Value Reference Range Interpretation Comments TSH (test code = 2821) 1.860 UIU/ML [id number] 00:00:00 Test Item Value Reference Range Interpretation Comments TSH (test code = 2821) 1.860 UIU/ML [id number] 00:00:00 Test Item Value Reference Range Interpretation Comments TSH (test code = 2821) 1.860 UIU/ML COMPREHENSIVE METABOLIC [id number] 00:00:00 Test Item Value Reference Range Interpretation Comments GLUCOSE (test code = 2217) 117 MG/DL BUN (test code = 2208) 11 MG/DL CREATININE (test code = 2214) 0.59 MG/DL eGFR AMER. (test code 121 ML/MIN/1.73 = 42379) eGFR NON- AMER. (test 105 ML/MIN/1.73 code = 92444) CALC BUN/CREAT (test code = 19 RATIO 2235) SODIUM (test code = 2231) 141 MEQ/L POTASSIUM (test code = 2228) 4.1 MEQ/L CHLORIDE (test code = 2215) 101 MEQ/L CARBON DIOXIDE (test code = 26 MEQ/L 2206) CALCIUM (test code = 2209) 9.7 MG/DL PROTEIN, TOTAL (test code = 6.8 G/DL 222) ALBUMIN (test code = 2201) 5.1 G/DL CALC GLOBULIN (test code = 1.7 G/DL 2240) CALC A/G RATIO (test code = 3.0 RATIO 2234) BILIRUBIN, TOTAL (test code = 0.3 MG/DL 2206) ALKALINE PHOSPHATASE (test 105 U/L code = 2204) AST (test code = 2218) 23 U/L ALT (test code = 2219) 24 U/L COMPREHENSIVE METABOLIC [id number] 00:00:00 Test Item Value Reference Range Interpretation Comments GLUCOSE (test code = 2217) 117 MG/DL BUN (test code = 2208) 11 MG/DL CREATININE (test code = 2214) 0.59 MG/DL eGFR AMER. (test code 121 ML/MIN/1.73 = 87106) eGFR NON- AMER. (test 105 ML/MIN/1.73 code = 74545) CALC BUN/CREAT (test code = 19 RATIO 2235) SODIUM (test code = 2231) 141 MEQ/L POTASSIUM (test code = 2228) 4.1 MEQ/L CHLORIDE (test code = 2215) 101 MEQ/L CARBON DIOXIDE (test code = 26 MEQ/L 2205) CALCIUM (test code = 2209) 9.7 MG/DL PROTEIN, TOTAL (test code = 6.8 G/DL 2229) ALBUMIN (test code = 2201) 5.1 G/DL CALC GLOBULIN (test code = 1.7 G/DL 2240) CALC A/G RATIO (test code = 3.0 RATIO 2234) BILIRUBIN, TOTAL (test code = 0.3 MG/DL 2206) ALKALINE PHOSPHATASE (test 105 U/L code = 2204) AST (test code = 2218) 23 U/L ALT (test code = 2219) 24 U/L LIPID [id number] 00:00:00 Test Item Value Reference Range Interpretation Comments CHOLESTEROL (test code = 2210) 254 MG/DL TRIGLYCERIDES (test code = 2232) 141 MG/DL HDL CHOLESTEROL (test code = 2220) 71 MG/DL CALC LDL CHOL (test code = 2237) 155 MG/DL RISK RATIO LDL/HDL (test code = 2.18 RATIO 2238) LIPID [id number] 00:00:00 Test Item Value Reference Range Interpretation Comments CHOLESTEROL (test code = 2210) 254 MG/DL TRIGLYCERIDES (test code = 2232) 141 MG/DL HDL CHOLESTEROL (test code = 2220) 71 MG/DL CALC LDL CHOL (test code = 2237) 155 MG/DL RISK RATIO LDL/HDL (test code = 2.18 RATIO 2238) CBC W/AUTO [id number] 00:00:00 Test Item Value Reference Range Interpretation Comments WBC (test code = 1001) 5.4 K/UL RBC (test code = 1002) 5.07 M/UL HEMOGLOBIN (test code = 1003) 15.4 G/DL HEMATOCRIT (test code = 1004) 45.8 % MCV (test code = 1005) 90.3 fL MCH (test code = 1006) 30.4 PG MCHC (test code = 1007) 33.6 G/DL RDW (test code = 1038) 12.9 % NEUTROPHILS (test code = 1008) 51.7 % LYMPHOCYTES (test code = 1010) 31.8 % MONOCYTES (test code = 1011) 6.3 % EOSINOPHILS (test code = 1012) 9.6 % BASOPHILS (test code = 1013) 0.6 % PLATELET COUNT (test code = 1015) 308 K/UL CBC W/AUTO [id number] 00:00:00 Test Item Value Reference Range Interpretation Comments WBC (test code = 1001) 5.4 K/UL RBC (test code = 1002) 5.07 M/UL HEMOGLOBIN (test code = 1003) 15.4 G/DL HEMATOCRIT (test code = 1004) 45.8 % MCV (test code = 1005) 90.3 fL MCH (test code = 1006) 30.4 PG MCHC (test code = 1007) 33.6 G/DL RDW (test code = 1038) 12.9 % NEUTROPHILS (test code = 1008) 51.7 % LYMPHOCYTES (test code = 1010) 31.8 % MONOCYTES (test code = 1011) 6.3 % EOSINOPHILS (test code = 1012) 9.6 % BASOPHILS (test code = 1013) 0.6 % PLATELET COUNT (test code = 1015) 308 K/UL CBC W/AUTO [id number] 00:00:00 Test Item Value Reference Range Interpretation Comments WBC (test code = 1001) 5.4 K/UL RBC (test code = 1002) 5.07 M/UL HEMOGLOBIN (test code = 1003) 15.4 G/DL HEMATOCRIT (test code = 1004) 45.8 % MCV (test code = 1005) 90.3 fL MCH (test code = 1006) 30.4 PG MCHC (test code = 1007) 33.6 G/DL RDW (test code = 1038) 12.9 % NEUTROPHILS (test code = 1008) 51.7 % LYMPHOCYTES (test code = 1010) 31.8 % MONOCYTES (test code = 1011) 6.3 % EOSINOPHILS (test code = 1012) 9.6 % BASOPHILS (test code = 1013) 0.6 % PLATELET COUNT (test code = 1015) 308 K/UL HEMOGLOBIN [id number] 00:00:00 Test Item Value Reference Range Interpretation Comments HEMOGLOBIN A1c (test code = 28177) 6.4 % HEMOGLOBIN [id number] 00:00:00 Test Item Value Reference Range Interpretation Comments HEMOGLOBIN A1c (test code = 25792) 6.4 % HEMOGLOBIN [id number] 00:00:00 Test Item Value Reference Range Interpretation Comments HEMOGLOBIN A1c (test code = 00307) 6.4 % [id number] 00:00:00 Test Item Value Reference Range Interpretation Comments TSH (test code = 2821) 1.860 UIU/ML [id number] 00:00:00 Test Item Value Reference Range Interpretation Comments TSH (test code = 2821) 1.860 UIU/ML [id number] 00:00:00 Test Item Value Reference Range Interpretation Comments TSH (test code = 2821) 1.860 UIU/ML COMPREHENSIVE METABOLIC [id number] 00:00:00 Test Item Value Reference Range Interpretation Comments GLUCOSE (test code = 2217) 117 MG/DL BUN (test code = 2208) 11 MG/DL CREATININE (test code = 2214) 0.59 MG/DL eGFR AMER. (test code 121 ML/MIN/1.73 = 00929) eGFR NON- AMER. (test 105 ML/MIN/1.73 code = 51280) CALC BUN/CREAT (test code = 19 RATIO 2235) SODIUM (test code = 2231) 141 MEQ/L POTASSIUM (test code = 2228) 4.1 MEQ/L CHLORIDE (test code = 2215) 101 MEQ/L CARBON DIOXIDE (test code = 26 MEQ/L 2205) CALCIUM (test code = 2209) 9.7 MG/DL PROTEIN, TOTAL (test code = 6.8 G/DL 2228) ALBUMIN (test code = 2201) 5.1 G/DL CALC GLOBULIN (test code = 1.7 G/DL 2240) CALC A/G RATIO (test code = 3.0 RATIO 2234) BILIRUBIN, TOTAL (test code = 0.3 MG/DL 2206) ALKALINE PHOSPHATASE (test 105 U/L code = 2204) AST (test code = 2218) 23 U/L ALT (test code = 2219) 24 U/L COMPREHENSIVE METABOLIC [id number] 00:00:00 Test Item Value Reference Range Interpretation Comments GLUCOSE (test code = 2217) 117 MG/DL BUN (test code = 2208) 11 MG/DL CREATININE (test code = 2214) 0.59 MG/DL eGFR AMER. (test code 121 ML/MIN/1.73 = 93680) eGFR NON- AMER. (test 105 ML/MIN/1.73 code = 73653) CALC BUN/CREAT (test code = 19 RATIO 2235) SODIUM (test code = 2231) 141 MEQ/L POTASSIUM (test code = 2228) 4.1 MEQ/L CHLORIDE (test code = 2215) 101 MEQ/L CARBON DIOXIDE (test code = 26 MEQ/L 2205) CALCIUM (test code = 2209) 9.7 MG/DL PROTEIN, TOTAL (test code = 6.8 G/DL 2228) ALBUMIN (test code = 2201) 5.1 G/DL CALC GLOBULIN (test code = 1.7 G/DL 2240) CALC A/G RATIO (test code = 3.0 RATIO 2234) BILIRUBIN, TOTAL (test code = 0.3 MG/DL 2206) ALKALINE PHOSPHATASE (test 105 U/L code = 2204) AST (test code = 2218) 23 U/L ALT (test code = 2219) 24 U/L
[2023-05-22 15:02] LABS: Absolute Lymphocytes (CBC) 2.6 K/uL (0.7-4.9); Hematocrit 40.3 % (36.0-45.0); Lymphocytes % 32.9 % (15.3-44.8); MCV 87.9 fL (80-100); MPV 8.8 fL (7.6-11.3); Platelets 328 thou/uL (152-406); RBC Red Blood Cell Count 4.59 M/uL (3.86-4.86)
--- NOTE | 2023-05-22 15:18 | RAD REPORT ---
EXAM DESCRIPTION: CT - Head C Spine Cap Caio Simmons - 05/22/2023 3:00 pm CLINICAL HISTORY: Trauma, head and neck injury. Chest, abdomen and pelvis pain. TRAUMA COMPARISON: No comparisons TECHNIQUE: CT head without contrast. CT cervical spine without contrast with coronal and sagittal reformatted images. CT chest, abdomen and pelvis with IV contrast (approximately 100 mL nonionic IV contrast) with ortega l and sagittal reformatted images of the spine. All CT scans are performed using dose optimization technique as appropriate and may include automated exposure control or mA/KV adjustment according to patient size. FINDINGS: CT HEAD WITHOUT CONTRAST: No intracranial hemorrhage, hydrocephalus or extra-axial fluid collection. No areas of brain edema o r midline shift. The paranasal sinuses and mastoids are clear. The calvarium is intact. CT CERVICAL SPINE WITHOUT CONTRAST: No fracture or subluxation. The prevertebral soft tissues are normal in thickness. CT CHEST, ABDOMEN, PELVIS WITH CONTRAST: The lungs are clear.No pneumothorax or pericardial/pleural fluid. No evidence of intra-abdominal visceral injury, free fluid or free air. No concerning pelvic findings. No fractures. IMPRESSION: Negative for acute traumatic findings.
[2023-05-22 15:26] LABS: ALT/SGPT 16 U/L (13-56); AST/SGOT 10 U/L (15-37); Albumin 3.8 g/dL (3.4-5.0); Alkaline Phosphatase 110 U/L (45-117); BUN Blood Urea Nitrogen 13 mg/dL (7-18); Bicarbonate 23 mEq/L (21-32); Bilirubin Total 0.3 mg/dL (0.2-1.0); Glomerular Filtration Rate 84 ml/min (=/>90); Glucose Level 157 mg/dL (74-106); Potassium 3.5 mEq/L (3.5-5.1); Protein, Total 7.9 g/dL (6.4-8.2); Sodium Level 139 mEq/L (136-145); Troponin High Sensitivity 10.7 pg/mL (<58.9)
[2023-05-22 15:31] LABS: Bilirubin Direct < 0.1 mg/dL (0-0.2); Bilirubin Indirect, Calculated ND mg/dL (0.2-0.8)
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
[2023-05-22 17:34] VITALS: TEMP 97.9; O2SAT 100
[2023-05-22 17:38] VITALS: BP 114/72
--- NOTE | 2023-05-23 13:28 | EKG ---
Test Date: 2023-05-22 Test Time: 15:03:55 Senior Contracts Manager: ARMANDO MEASUREMENT RESULTS: Intervals: Rate: 101 MN: 152 QRSD: 76 QT: 328 QTc: 425 [place]: P: 56 MN: 152 QRS: 62 T: 35 INTERPRETIVE STATEMENTS: Sinus tachycardia Low voltage QRS Borderline ECG No previous ECG available for comparison Electronically Signed On 05-23-23 13:26:33 [employer] by Yariel Gloria
== END 2023-05-22 16:57 | disposition home or self-care (01) ==
LOC: ER 14:35
DX: S09.90XA Unspecified injury of head, initial encounter (principal); S40.021A Contusion of right upper arm, initial encounter; V47.5XXA Car driver injured in collision with fixed or stationary object in traffic accident, initial encounter; Z88.0 Allergy status to penicillin
CPT/HCPCS: 93005; 85025; 80048; 36415; 86900; 86850; 86901; 80076; 84484; 70450; 72125; 71260; 74177; 73060; 96375; 96374; 99285; Q9967